=== PATIENT | female | born 1940 | race Caucasian/White ===

== ENCOUNTER 2019-09-11 12:10 | Outpatient (CLI) | payer MEDICARE, OTHER ==
[2019-09-11 17:38] LABS: ALBUMIN 2.8 g/dL (3.2-5.5); ALKALINE PHOSPHATASE 19 IU/L (42-121); ALT ALANINE AMINOTRANSFERASE < 10 IU/L (10-60); AST ASPARTATE AMINOTRANSFERASE 19 IU/L (10-42); BILIRUBIN,TOTAL 0.6 mg/dL (0.2-1.0); BUN - BLOOD UREA NITROGEN 19 mg/dL (6-20); CARBON DIOXIDE - CO2 26 mmol/L (21-32); CHLORIDE 100 mmol/L (101-111); CHOL/HDL RATIO 6.7 (<4.4); CHOLESTEROL 202 mg/dL; CREATININE 1.7 mg/dL (0.4-1.0); GFR - MDRD 29 (>89); GLUCOSE 83 mg/dL (70-100); HDL CHOLESTEROL 30 mg/dL; LDL CHOLESTEROL,CALCULATED 146 mg/dL; LDL/HDL RATIO 4.9 (<4.4); SODIUM 134 mmol/L (135-145); TOTAL PROTEIN 5.5 g/dL (6.7-8.2); VLDL CHOLESTEROL 26 mg/dL
== END 2019-09-11 23:59 | disposition home or self-care (01) ==
LOC: LAB.R 12:10
PROVIDERS: ATTEND Internal Medicine
DX: K63.2 Fistula of intestine (principal); E46 Unspecified protein-calorie malnutrition
CPT/HCPCS: 80053; 80061; 83721; 84443; 85025

== ENCOUNTER 2019-11-02 12:15 | Outpatient (CLI) | payer MEDICARE, OTHER ==
[2019-11-02 17:42] LABS: ALBUMIN 3.3 g/dL (3.2-5.5); ALKALINE PHOSPHATASE 26 IU/L (42-121); ALT ALANINE AMINOTRANSFERASE < 10 IU/L (10-60); AST ASPARTATE AMINOTRANSFERASE 24 IU/L (10-42); BILIRUBIN,DIRECT 0.2 mg/dL (0.1-0.5); BILIRUBIN,TOTAL 0.5 mg/dL (0.2-1.0); TOTAL PROTEIN 6.5 g/dL (6.7-8.2)
== END 2019-11-02 23:59 | disposition home or self-care (01) ==
LOC: LAB.R 12:15
PROVIDERS: ATTEND Registered Nurse
DX: E46 Unspecified protein-calorie malnutrition (principal)
CPT/HCPCS: 80076

== ENCOUNTER 2019-11-16 10:04 | Outpatient (CLI) | payer MEDICARE, OTHER | END 2019-11-16 10:05 | disposition home or self-care (01) | LOC: LAB.S 10:04 | PROVIDERS: ATTEND Registered Nurse | DX: Z79.01 Long term (current) use of anticoagulants (principal); Z86.711 Personal history of pulmonary embolism | CPT/HCPCS: 85610 ==

== ENCOUNTER 2019-11-22 13:44 | Outpatient (CLI) | payer MEDICARE, OTHER | END 2019-11-22 13:45 | disposition home or self-care (01) | LOC: LAB.S 13:44 | PROVIDERS: ATTEND Registered Nurse | DX: Z86.711 Personal history of pulmonary embolism (principal); Z79.01 Long term (current) use of anticoagulants | CPT/HCPCS: 85610 ==

== ENCOUNTER 2019-11-29 12:10 | Outpatient (CLI) | payer MEDICARE, OTHER | END 2019-11-29 12:11 | disposition home or self-care (01) | LOC: LAB.S 12:10 | PROVIDERS: ATTEND Registered Nurse | DX: Z79.01 Long term (current) use of anticoagulants (principal); Z86.711 Personal history of pulmonary embolism | CPT/HCPCS: 85610 ==

== ENCOUNTER 2019-12-06 13:57 | Outpatient (CLI) | payer MEDICARE, OTHER | END 2019-12-06 13:58 | disposition home or self-care (01) | LOC: LAB.S 13:57 | PROVIDERS: ATTEND Registered Nurse | DX: Z86.711 Personal history of pulmonary embolism (principal); Z79.01 Long term (current) use of anticoagulants | CPT/HCPCS: 85610 ==

== ENCOUNTER 2020-01-15 11:20 | Outpatient (CLI) | payer MEDICARE, OTHER | END 2020-01-15 11:21 | disposition critical access hospital (66) | LOC: EMS 11:20 | PROVIDERS: ATTEND Surgery | DX: R50.9 Fever, unspecified (principal); R41.82 Altered mental status, unspecified | CPT/HCPCS: A0425; A0429 ==

== ENCOUNTER 2020-01-15 11:48 | Inpatient (IN) | payer MEDICARE, OTHER ==
--- NOTE | 2020-01-15 12:12 | ED Physician Documentation ---
History of Present Illness - Stated complaint Stated Complaint: ALOC - History obtained from History obtained from: EMS, Caregiver (MICHAEL Hernández @ [facility]; 79-year-old female patient comes in today after [facility] RN requested EMS transport for a failure to thrive patient. The patient has had a roughly 16 pound weight loss over the last month, has been refusing her medications more more. She has taken her medications twice in the last 5 days. The patient is also having difficulty eating been having some swallowing difficulties. The patient's primary care provider is following her closely on this, and the nurse Betty tells me that her medications are crushed in applesauce and pudding, and the patient is refusing these. The pt's baseline speach is low volume / tone, but clear. today is has incomprehensable speach but she is resonding to painful stimuli.) Review of Systems Unable to obtain: Unresponsive, AMS Constitutional: reports: Fever (per usp and EMS.) PD PAST MEDICAL HISTORY - Past Surgical History Cardiovascular: CABG - Present Medications Home Medications: Ambulatory Orders Medication Instructions Recorded Confirmed Cholecalciferol [Vitamin D3] 5,000 unit PO DAILY 01/15/20 01/15/20 Cyanocobalamin [Vitamin B-12] 1,000 mcg IM ONCE 01/15/20 01/15/20 Escitalopram Oxalate 20 mg PO DAILY 01/15/20 01/15/20 Fluticasone [Flonase] 2 sprays MAURICE BID 01/15/20 01/15/20 Glutamine [Endari] 10 ml PO BID 01/15/20 01/15/20 Lansoprazole [Prevacid] 15 mg PO DAILY 01/15/20 01/15/20 Metoclopramide [Reglan] 10 mg PO ACHS 01/15/20 01/15/20 Ondansetron Odt [Zofran Odt] 4 mg TL Q4H PRN 01/15/20 01/15/20 Saccharomyces Boulardii [Florastor] 250 mg PO BID 01/15/20 01/15/20 Vitamin B Complex 1 each PO DAILY 01/15/20 01/15/20 Warfarin Sodium [Coumadin] 3 mg PO DAILY 01/15/20 01/15/20 - Allergies Allergies/Adverse Reactions: Allergies Allergy/AdvReac Type Severity Reaction Status Date / Time alendronate sodium Allergy Unknown Verified 01/15/20 12:14 [From Fosamax] codeine Allergy Unknown Verified 01/15/20 12:14 fentanyl Allergy Unknown Verified 01/15/20 12:14 ibandronate sodium Allergy Unknown Verified 01/15/20 12:14 risedronate sodium Allergy Unknown Verified 01/15/20 12:14 [From Actonel] Sulfa (Sulfonamide Allergy Unknown Verified 01/15/20 12:14 Antibiotics) RISENDRINATE Allergy Unknown Uncoded 01/15/20 12:14 SULFA Allergy Unknown Uncoded 01/15/20 12:14 - POLST Patient has POLST: Yes POLST Status: Limited Interventions (no Chest Compressions: Ok for intubation, IV fluids, feeding tube (per son Al Guzman ).) PD ED PE NORMAL - General General: Other - HEENT HEENT: Atraumatic, PERRL (3 mm). No: Moist mucous membranes (dry) - Neck Neck: No adenopathy - Cardiac Cardiac: RRR, No murmur - Respiratory Respiratory: No respiratory distress - Abdomen Abdomen: Soft, Non distended - Female Female : Deferred - Rectal Rectal: Deferred - Derm Derm: Warm and dry - Extremities Extremities: No deformity, No edema - Neuro Eye Opening: To Pain Motor: Localizes to Pain Verbal: Incomprehensible GCS Score: 9 PD ED PE EXPANDED - Neuro Neuro: Lethargic, Weakness - GCS Eye Opening: To Pain Motor: Localizes to Pain Verbal: Incomprehensible Total: 9 Results - Vitals Vitals: Vital Signs - 24 hr 01/15/20 01/15/20 01/15/20 12:15 12:31 13:34 Temperature 37.4 C 36.9 C Heart Rate 86 85 83 Respiratory 21 21 14 Rate Blood Pressure 155/91 H 157/79 H O2 Saturation 96 96 99 01/15/20 14:18 Temperature Heart Rate 84 Respiratory 18 Rate Blood Pressure 217/93 H O2 Saturation 100 Oxygen O2 Source Room air - Labs Labs: Laboratory Tests 01/15/20 01/15/20 01/15/20 12:55 12:55 12:55 WBC 9.5 RBC 3.81 L Hgb 11.1 L Hct 35.7 L MCV 93.7 MCH 29.1 MCHC 31.1 L RDW 16.3 H Plt Count 323 MPV 10.2 Neut # (Auto) 6.5 Lymph # (Auto) 2.0 [place] # (Auto) 0.9 Eos # (Auto) 0.0 Baso # (Auto) 0.1 Absolute Nucleated RBC 0.00 Nucleated RBC % 0.0 Sodium 149 H Potassium 3.6 Chloride 110 Carbon Dioxide 25 Anion Gap 14.0 H BUN 98 H* Creatinine 5.1 H Estimated GFR (MDRD) 8 L Glucose 109 H Lactic Acid Calcium 11.3 H Total Bilirubin 1.2 H AST 42 ALT 21 Alkaline Phosphatase 27 L Troponin I High Sens B-Natriuretic Peptide 88 Total Protein 6.6 L Albumin 3.3 Globulin 3.3 Albumin/Globulin Ratio 1.0 Lipase 56 H Urine Color Urine Clarity Urine pH Ur Specific Seward Urine Protein Urine Glucose (UA) Urine Ketones Urine Occult Blood Urine Nitrite Urine Bilirubin Urine Urobilinogen Ur Leukocyte Esterase Urine RBC Urine WBC Ur Epithelial Cells Ur Squamous Epith Cells Urine Crystals Urine Bacteria Ur Microscopic Review Urine Culture Comments 01/15/20 01/15/20 01/15/20 12:55 12:55 13:32 WBC RBC Hgb Hct MCV MCH MCHC RDW Plt Count MPV Neut # (Auto) Lymph # (Auto) [place] # (Auto) Eos # (Auto) Baso # (Auto) Absolute Nucleated RBC Nucleated RBC % Sodium Potassium Chloride Carbon Dioxide Anion Gap BUN Creatinine Estimated GFR (MDRD) Glucose Lactic Acid 1.4 Calcium Total Bilirubin AST ALT Alkaline Phosphatase Troponin I High Sens 65.1 H* B-Natriuretic Peptide Total Protein Albumin Globulin Albumin/Globulin Ratio Lipase Urine Color DARK YELLOW Urine Clarity CLOUDY Urine pH 8.0 H Ur Specific [place] 1.020 Urine Protein 100 H Urine Glucose (UA) NEGATIVE Urine Ketones TRACE Urine Occult Blood SMALL H Urine Nitrite NEGATIVE Urine Bilirubin NEGATIVE Urine Urobilinogen 0.2 (NORMAL) Ur Leukocyte Esterase LARGE H Urine RBC 11-25 H Urine WBC >25 H Ur Epithelial Cells FEW Renal Tubular Ur Squamous Epith Cells RARE Squamous Urine Crystals 3-5 Triple Phosphate Urine Bacteria Moderate H Ur Microscopic Review INDICATED Urine Culture Comments INDICATED - Rads (name of study) No standard instances Radiology: Final report received, See rad report PD MEDICAL DECISION MAKING - ED course Complexity details: reviewed results, re-evaluated patient, considered differential (UTI, pneumonia, COVID-19, CVA), d/w family (son Al regarding the pt's failure to thrive, dementia, and recent weight loss of 16# over the past month. ), d/w knowledge management consultant (Dr. Angie Waddell who has agreed to accept the pt as an admit for hydration, antibiotics. She will speak with the pt's son, Al, about the pt's code / POLST status and get him to sign a new form when he arives from [place] tomorrw. ) Departure - Departure Disposition: 66 [facility] DC/Xfer Clinical Impression: Altered mental status Qualifiers: Altered mental status type: coma Coma depth: Sparkman coma 9-12 Coma timing: at arrival to emergency department Qualified Code(s): R40.2422 - Sparkman coma scale score 9-12, at arrival to emergency department UTI (urinary tract infection) Qualifiers: Urinary tract infection type: site unspecified Hematuria presence: without hematuria Qualified Code(s): N39.0 - Urinary tract infection, site not specified Condition: Fair
[2020-01-15 13:00] LABS: BASOPHILS # (AUTO) 0.1 10^3/uL (0.0-0.1); BASOPHILS % (AUTO) 0.9 %; EOSINOPHILS % (AUTO) 0.2 %; HGB - HEMOGLOBIN 11.1 g/dL (12.0-16.0); LYMPHOCYTES % (AUTO) 20.8 %; MEAN CORPUSCULAR HEMOGLOBIN 29.1 pg (27.0-31.0); MEAN CORPUSCULAR HGB CONC 31.1 g/dL (32.0-36.0); MEAN CORPUSCULAR VOLUME 93.7 fL (81.0-99.0); MEAN PLATELET VOLUME 10.2 fL (7.9-10.8); MONOCYTES # (AUTO) 0.9 10^3/uL (0.0-1.0); MONOCYTES % (AUTO) 9.5 %; NEUTROPHILS # (AUTO) 6.5 10^3/uL (1.5-6.6); NEUTROPHILS % (AUTO) 68.3 %; PLT - PLATELET COUNT 323 10^3/uL (130-450); RED BLOOD COUNT 3.81 10^6/uL (4.20-5.40); RED CELL DISTRIBUTION WIDTH 16.3 % (12.0-15.0); WHITE BLOOD COUNT 9.5 x10^3/uL (4.8-10.8)
[2020-01-15 13:20] LABS: ALBUMIN 3.3 g/dL (3.2-5.5); BILIRUBIN,TOTAL 1.2 mg/dL (0.2-1.0); CALCIUM 11.3 mg/dL (8.5-10.3); CREATININE 5.1 mg/dL (0.4-1.0); TOTAL PROTEIN 6.6 g/dL (6.7-8.2)
[2020-01-15] MEDS ORDERED: SODIUM CHLORIDE 0.9% 1,000 ML IV ONE (13:30)
--- NOTE | 2020-01-15 13:32 | XRAY Report ---
Reason: chest pain Procedure Date: 01/15/2020 Accession Number: [id number] / [id number] Procedure: XR - Chest 1 View X-Ray CPT Code: 15361 Final Report FULL RESULT: EXAM: CHEST RADIOGRAPHY EXAM DATE: 01/15/2020 12:40 PM. CLINICAL HISTORY: Chest pain. COMPARISON: None. TECHNIQUE: 1 view. FINDINGS: Lungs/Pleura: Enlarged pulmonary arteries consistent with pulmonary artery hypertension. Increased interstitial markings and honeycombing lung bases compatible with pulmonary fibrosis or UIP. Negative for consolidation. Negative for pleural fluid. Decreased lung volume. Mediastinum: Sternotomy wires consistent with prior cardiac surgery. Heart size is normal. Trachea is midline. Other: None. IMPRESSION: 1. Negative for active cardiopulmonary process. 2. Chronic stitch lung disease lung bases in the lung base honeycombing consistent with pulmonary fibrosis or UIP. 3. Enlarged pulmonary arteries consistent with pulmonary artery hypertension. RADIA
[2020-01-15 13:41] LABS: GLUCOSE, URINE (UA) NEGATIVE (NEGATIVE); KETONES,URINE (UA) TRACE mg/dL (NEGATIVE); LEUKOCYTE ESTERASE, URINE LARGE (NEGATIVE); NITRITE,URINE NEGATIVE (NEGATIVE); OCCULT BLOOD,URINE SMALL (NEGATIVE); PROTEIN,URINE 100 mg/dL (NEGATIVE); UROBILINOGEN,URINE 0.2 (NORMAL) E.U./dL (NORMAL)
[2020-01-15 13:42] LABS: CLARITY,URINE CLOUDY (CLEAR)
[2020-01-15 13:44] LABS: BILIRUBIN,URINE NEGATIVE (NEGATIVE); ICTOTEST,URINE NEGATIVE
--- NOTE | 2020-01-15 13:47 | CT Report ---
Reason: altered LOC Procedure Date: 01/15/2020 Accession Number: [id number] / [id number] Procedure: CT - HEAD WO CPT Code: Final Report FULL RESULT: EXAM: CT HEAD EXAM DATE: 01/15/2020 01:07 PM. CLINICAL HISTORY: Altered LOC. COMPARISON: CHEST 1 VIEW 01/15/2020 12:40 PM. TECHNIQUE: Multiaxial CT images were obtained from the foramen magnum to the vertex. Reformats: Sagittal and coronal. IV contrast: None. In accordance with CT protocol optimization, one or more of the following dose reduction techniques were utilized for this exam: automated exposure control, adjustment of mA and/or KV based on patient size, or use of iterative reconstructive technique. FINDINGS: Parenchyma: No intraparenchymal hemorrhage. No evidence of mass, midline shift, or CT findings of acute infarction. Monson-white differentiation is distinct. Diffuse chronic microangiopathic white matter changes are evident. Old right basal ganglia lacunar infarct. Right parietal encephalomalacia likely from old infarct. Extraaxial Spaces: Normal for age. No subdural or epidural collections identified. Ventricles: The ventricles and cortical sulci are enlarged, consistent with age-related tissue loss. Sinuses and orbits: Imaged paranasal sinuses, orbits, and mastoids show no significant abnormality. Bones: No evidence of fracture or calvarial defect. Other: Atherosclerotic arterial calcifications. IMPRESSION: 1. Generalized age-related cortical atrophic changes. 2. Old right basal ganglia lacunar infarct. 3. Right parietal encephalomalacia is likely from old infarct. 4. No intracranial hemorrhage or large recent infarct evident. If there is clinical indication to further assess, consider MRI. RADIA
[2020-01-15 13:49] LABS: BACTERIA,URINE Moderate /HPF (None Seen); CRYSTALS,URINE 3-5 Triple Phosphate /LPF; EPITHELIAL CELLS,UR FEW Renal Tubular /HPF (<= Few); SQUAMOUS EPITHELIAL CELL,UR RARE Squamous (<= Few)
[2020-01-15] MEDS ORDERED: cefTRIAXone 1 GM VIAL IVP STA (13:57)
[2020-01-15] MEDS ORDERED: hydrALAZINE INJ 20 MG/ML VIAL IVP STA (14:14)
[2020-01-15] MEDS ORDERED: ONDANSETRON 4 MG/2 ML VIAL IVP PRN (14:22)
[2020-01-15] MEDS ORDERED: DEXTROSE 5%-0.9% NACL 1,000 ML IV SCH (15:00)
[2020-01-15] MEDS ORDERED: hydrALAZINE INJ 20 MG/ML VIAL IVP PRN (15:11)
[2020-01-15 16:25] LABS: INR 5.4 (0.8-1.2)
--- NOTE | 2020-01-15 16:46 | HISTORY & PHYSICAL EXAMINATION ---
DATE OF SERVICE: 01/15/2020 Physician: Angie Waddell MD HISTORY OF PRESENT ILLNESS: This is an 79-year-old female with a history of dementia and old CABG. The patient resides at [facility]. She has been having failure to thrive with a documented 15-pound weight loss over the last 1 month, has been refusing foods and medication intermittently. Today, the staff noted that she had altered responsiveness and also a fever at the assisted living facility and she was brought to the emergency room. In the ER, she was obtunded, responded only to painful stimuli, did have some verbalizing that was noncoherent. Her workup in the ER shows that she has urinary tract infection, hypernatremia with a sodium of 149, acute kidney injury with BUN of 98 and creatinine 5.1, as her baseline creatinine was 1.7 in the past. She also has an elevated troponin of 65, a normal lactic acid level, normal temperature and normal white blood count. She presented with a normal blood pressure in the 140s, but subsequently in the ER has a documented blood pressure of 217 systolic. PAST MEDICAL HISTORY 1. CABG. 2. Dementia. ALLERGIES 1. FOSAMAX 2. CODEINE. 3. FENTANYL. 4. IBANDRONATE. 5. ACTONEL. 6. SULFA ANTIBIOTICS. 7. RISEDRONATE. MEDICATIONS 1. Zofran p.r.n. 2. Vitamin D3 5000 units daily. 3. Reglan before meals and at bedtime. 4. Vitamin B complex daily. 5. Glutamine 10 mL b.i.d. 6. Prevacid 15 mg daily. 7. Florastor 250 mg b.i.d. 8. Flonase nasal spray b.i.d. 9. Escitalopram 20 mg daily. 10. Vitamin B12 1000 mcg daily. 11. Warfarin 3 mg daily (unclear if this is current and what Dx it is for). SOCIAL HISTORY: She does not drink alcohol or smoke. She does require a dysphagia altered diet according to the notes. The Emergency Room was able to ascertain that there is a female relative who is the first person to contact, but there was no phone listed. A second person to contact was a son and the ER Provider spoke to the son, who will be arriving tomorrow from [place]. He reported that he wanted no CPR or defibrillation for his mother, but intubation and ventilator use was okay. REVIEW OF SYSTEMS: A comprehensive review of systems was done from chart review since the patient is obtunded. The pertinent positives are listed, the rest are negative. FAMILY HISTORY: No listed inherited diseases. PHYSICAL EXAMINATION GENERAL: Obtunded white female. She does not appear in distress. VITAL SIGNS: Blood pressure 148/103 (after iv Hydralazine treatment for the systolic BP of 213), heart rate 73 and regular, respiratory rate 16, O2 saturation 100% on room air, afebrile at 36.6 centigrade. HEENT: Reveals dry oral mucosa, temporal wasting and sunken eyes. NECK: No JVD. CHEST: Clear. HEART: Distant heart sounds. ABDOMEN: Soft, nontender. Normal bowel sounds. EXTREMITIES: No clubbing, cyanosis or edema. Abnormal skin tenting is present. NEUROLOGIC: Obtunded, responds with appropriate localization to pain stimulus. Is moving spontaneously. LABORATORY DATA: Sodium 149, potassium 3.6, anion gap 14, BUN 98, creatinine 5.1. Lactic acid normal at 1.4. AST and ALT are normal. BNP normal at 88. Troponin high sensitivity is 65. Lipase 56. White blood count 9.5, hemoglobin 11, platelet count 323. No INR was done. Urinalysis shows a pH of 8, high protein, small blood, large leukocyte esterase, moderate bacteria and many white blood cells. IMAGING: Chest x-ray: No active cardiopulmonary disease. Head CT: Evidence of old strokes and encephalomalacia, consistent with her age, but no acute findings. EKG: Normal sinus rhythm, LVH voltage with diffuse, flattened or minimally inverted T waves, QS waves are present in V1 and V2. There is no old EKG available for comparison. IMPRESSION/DIAGNOSES 1. Altered mental status, which is likely related to her infection and dehydration on top of dementia. 2. Urinary tract infection. 3. Hypertensive urgency. 4. Lccni-ya-oghhoeq kidney disease. 5. Hypernatremia. 6. Dementia. 7. Old stroke. 8. Elevated troponin (and abnormal EKG). 9. History of coronary artery bypass graft. 10. Noncompliance with medical management. Her refusal of meds and diet may be due to dementia or due to worsening of a metabolic encephalopathy over time. PLAN: Admit the patient to a medical/surgical Inpatient bed. Begin IV hydration, D5 normal saline or 0.45 NS. Follow her electrolytes daily. Follow her BUN and creatinine daily. Begin empiric IV antibiotics for her UTI using Ceftriaxone. Obtain blood and urine cultures and await results. Diet will currently be n.p.o. because of her altered mental status, but as she awakens will evaluate with a swallowing evaluation before diet is resumed. Use IV hydralazine p.r.n. hypertensive urgency. Cycle troponins x3. Obtain an INR now and determine the diagnosis for Warfarin being on her medication list. (She may have had paroxysmal atrial fibrillation or prior atrial fibrillation, but now is in sinus rhythm. If she cannot swallow, then bridging subcutaneous therapy may be needed for anticoagulation currently). The plan will be to discuss code status and medical management in detail with the son, when he arrives with an advance care plan. COVID nasal swab was done in [facility] ER because of presence of infection with unconfirmed source. Therefore, respiratory isolation will be ordered until we know her COVID status. DEEP VENOUS THROMBOSIS PROPHYLAXIS: SCDs. CODE STATUS: DNR with no CPR or defibrillation, but okay to intubate. ATTESTATION: The patient is expected to be discharged or transferred to another facility within 96 hours: Yes. Addendum: The INR is excessive at 5, but since there is no active bleeding, will hold Warfarin but not give any vitamin K. Follow INR daily, since it may go up, being on antibiotics. TD: 01/15/2020 15:27 [email or web address]
--- NOTE | 2020-01-15 17:14 | PHARMACY PROGRESS NOTE ---
- Best Possible Medication History Admit Date and Time: 01/15/20 1422 Processed by: Pharmacy Medication History completed: Yes Secondary Source(s): Physician records, Facility MAR as ONLY source As the person ultimately responsible for medication therapy, providers are able to order a medication from an existing home medication list in [facility] via the "Reconcile Routine" prior to Confirmation of that medication by client support manager. Such practice is discouraged except when the physician, in their clinical judgment, deems that a medical need exists for a medication without regard to previous use.
[2020-01-15] MEDS ORDERED: ACETAMINOPHEN 1,000 MG/100 ML 100 ML IV PRN (18:50)
--- NOTE | 2020-01-15 22:50 | ANESTHESIA PROCEDURE NOTE ---
Height and Weight: Height 5 ft 2 in Weight (kg) 45.5 kg Body Mass Index 18.3 Vital Signs: Temp Pulse Resp BP Pulse Ox 36.4 C L 87 16 145/89 H 92 01/15/20 21:00 01/15/20 21:00 01/15/20 21:00 01/15/20 21:00 01/15/20 21:00 Allergies alendronate sodium [From Fosamax] Allergy (Verified 01/15/20 12:14) Unknown codeine Allergy (Verified 01/15/20 12:14) Unknown fentanyl Allergy (Verified 01/15/20 12:14) Unknown ibandronate sodium Allergy (Verified 01/15/20 12:14) Unknown risedronate sodium [From Actonel] Allergy (Verified 01/15/20 12:14) Unknown Sulfa (Sulfonamide Antibiotics) Allergy (Verified 01/15/20 12:14) Unknown RISENDRINATE Allergy (Uncoded 01/15/20 12:14) Unknown SULFA Allergy (Uncoded 01/15/20 12:14) Unknown Anesth Central Line Template - Central Line Central Line Preparation: Consent Obtained (obtained phone consent from patient's son Al), Time out completed, Ultrasound used, Sterile prep and drape Central line type: Other (PICC) Central line aftercare: Other (see note) Other Info/Details: Called for IV access. Attempted peripheral IVs x 2 without success. Patient has very poor veins, the veins are small and easily collapsed. Consent for PICC line obtained from patient's son. I was able to access the right basillic vein with a 20G needle and advance the guidewire with ease. I placed a 4.5FR sheath and after removal of wire/introducer there was no blood return. I was unable to advance the PICC into the sheath and suspect the vein had collapsed. I attempted the cephalic vein but immediately after access with the needle, the vein collapsed. I then used the ultrasound to image the veins in the left arm. The veins were small and poor quality. I attempted to place a peripheral IV but was unsuccessful. I imaged the IJ veins and the IJs were flat and collapsed easily with ultrasound pressure despite steep trendelenberg position. The veins were directly over the carotid artery and with INR of 5.4, the risk of complications for IJ central line placement was too great. At this point, I recommend IO placement by ED staff and a general surgery consult for IV access.
[2020-01-15] MEDS: SODIUM CHLORIDE FLUSH 0.9% 10 ML SYRINGE IVP SCH (23:07)
[2020-01-15] MEDS: DEXTROSE 5%-0.45% NACL 1,000 ML IV SCH (23:27)
[2020-01-16] MEDS: SODIUM CHLORIDE FLUSH 0.9% 10 ML SYRINGE IVP SCH ×3 (00:26→16:06)
[2020-01-16] MEDS: FAMOTIDINE 20 MG/2 ML SYRINGE IVP SCH ×2 (00:26→20:16)
[2020-01-16] MEDS ORDERED: SODIUM CHLORIDE 0.9% 1,000 ML IV ONE (00:37)
[2020-01-16] MEDS ORDERED: SODIUM CHLORIDE 0.9% 500 ML IV ONE (00:37)
[2020-01-16 01:09] LABS: CALCIUM 10.5 mg/dL (8.5-10.3); CREATININE 4.7 mg/dL (0.4-1.0)
[2020-01-16] MEDS ORDERED: LACTATED RINGERS 1,000 ML IV ONE (01:30)
[2020-01-16 08:52] LABS: BASOPHILS # (AUTO) 0.1 10^3/uL (0.0-0.1); BASOPHILS % (AUTO) 0.7 %; EOSINOPHILS # (AUTO) 0.8 10^3/uL (0.0-0.7); EOSINOPHILS % (AUTO) 8.5 %; LYMPHOCYTES # (AUTO) 1.7 10^3/uL (1.5-3.5); LYMPHOCYTES % (AUTO) 19.4 %; MEAN CORPUSCULAR HEMOGLOBIN 29.3 pg (27.0-31.0); MEAN CORPUSCULAR VOLUME 94.7 fL (81.0-99.0); MEAN PLATELET VOLUME 10.5 fL (7.9-10.8); MONOCYTES # (AUTO) 0.8 10^3/uL (0.0-1.0); MONOCYTES % (AUTO) 9.6 %; NEUTROPHILS # (AUTO) 5.4 10^3/uL (1.5-6.6); NEUTROPHILS % (AUTO) 61.2 %; PLT - PLATELET COUNT 255 10^3/uL (130-450); RED BLOOD COUNT 3.41 10^6/uL (4.20-5.40); RED CELL DISTRIBUTION WIDTH 16.5 % (12.0-15.0); WHITE BLOOD COUNT 8.8 x10^3/uL (4.8-10.8)
[2020-01-16 09:07] LABS: CALCIUM 10.4 mg/dL (8.5-10.3); CREATININE 4.3 mg/dL (0.4-1.0)
--- NOTE | 2020-01-16 11:37 | PROCEDURE REPORT ---
Hospitalist Procedure Note - Procedure Note Procedure Note: USG PICC attempted but could not advance the catheter beyond proximal axillary vein. the tip of the picc is in the left proximal axillary vein. 5 jordanian double lumen catheter inserted using all sterile prep and techniques. time out done and RN in the room, check list followed. Total catheter length is 20 cm and zero cm at the skin. Catheter secured and taped to the left brachium
--- NOTE | 2020-01-16 11:39 | ANESTHESIA PROCEDURE NOTE ---
Diagnosis: poor/no iv access Procedure: picc attempted/midline in Consent for Procedure(s) Verified and Reviewed: Yes Height and Weight: Height 5 ft 2 in Weight (kg) 47.5 kg Body Mass Index 18.3 Vital Signs: Temp Pulse Resp BP Pulse Ox 36.5 C 74 12 142/72 H 97 01/16/20 10:47 01/16/20 10:47 01/16/20 10:47 01/16/20 09:22 01/16/20 10:47 Allergies alendronate sodium [From Fosamax] Allergy (Verified 01/15/20 12:14) Unknown codeine Allergy (Verified 01/15/20 12:14) Unknown fentanyl Allergy (Verified 01/15/20 12:14) Unknown ibandronate sodium Allergy (Verified 01/15/20 12:14) Unknown risedronate sodium [From Actonel] Allergy (Verified 01/15/20 12:14) Unknown Sulfa (Sulfonamide Antibiotics) Allergy (Verified 01/15/20 12:14) Unknown RISENDRINATE Allergy (Uncoded 01/15/20 12:14) Unknown SULFA Allergy (Uncoded 01/15/20 12:14) Unknown ASA classification: 3-Severe systemic disease Is this case an emergency?: No Anesth Central Line Template - Central Line Central Line Preparation: Consent Obtained, Time out completed, Ultrasound used, Sterile prep and drape Central line type: Double lumen Central line catheter tip site resides: left proximal axillary vein Central line aftercare: Chlorhexidine disc placed, Secured, Placement confirmed, No pneumothorax, No complications, Bundle checklist complete, Pt tolerated well, Other (5 romansh double lumen)
[2020-01-16] MEDS: cefTRIAXone 1 GM in SODIUM CHLORIDE 0.9% MINIBAG 100 ML IV SCH (11:55)
--- NOTE | 2020-01-16 12:37 | XRAY Report ---
Reason: PICC attempted, line placed as midline Procedure Date: 01/16/2020 Accession Number: [id number] / [id number] Procedure: XR - Chest for Line Placement CPT Code: Final Report FULL RESULT: EXAM: CHEST RADIOGRAPHY EXAM DATE: 01/16/2020 11:45 AM. CLINICAL HISTORY: PICC attempted, line placed as midline. COMPARISON: CHEST 1 VIEW 01/15/2020 12:40 PM. TECHNIQUE: Upright AP view. FINDINGS: Lungs/Pleura: Extensive bibasilar peribronchial cuffing, as before. No new opacities. No generalized interstitial abnormality. No pneumothorax or gross pleural fluid. Mediastinum: Within exam limitations, the cardiomediastinal contour is normal. Sternotomy wires, as before. Mild aortic arch calcification. Other: Left upper extremity catheter extending to the mid left subclavian vein. IMPRESSION: 1. Left upper extremity catheter extending to the mid left subclavian vein. 2. Extensive bibasilar peribronchial cuffing suggesting chronic bronchitis. RADIA
[2020-01-16] MEDS: DEXTROSE 5%-0.45% NACL 1,000 ML IV SCH ×3 (15:03→22:28)
--- NOTE | 2020-01-16 17:35 | ADVANCE CARE PLANNING NOTE ---
Advance Care Planning - Planning Encounter Date: 01/16/20 Time: 15:35 Purpose: To confirm CODE status. To determine medical care plan and goals, from her son. Parties in Attendance: I spoke to her son, Al, outside the patient's room. Decisional Capacity of the Patient: Patient is obtunded, only responds to painful stimuli, is not communicative and has no decisional capacity currently. - Encounter Subjective/Patient's Story: Her history is obtained from the son and also from my speaking to a nurse at [facility] earlier today. This is an 79-year-old white female who has a history of perforated appendix, enterocutaneous fistula history, CKD, C. difficile history, a feeding tube was required but has been removed 4 to 5 months ago at request of the son, history of diabetes only on diet management, CKD grade 3, and A. fib, on anticoagulation. The son says that she has "a reaction to Warfarin but can take Coumadin". She is also on other management for constipation and other prn medications. The patient was able to ambulate with special caregivers that the son hired about a month ago. She carried on conversations, could remember about taxes in December, discussed her pet cat with the son. About 4 weeks ago he received a call that she had lost 5 pounds, he wanted to know "what they were doing about it". He states there was no response from them with an answer for 3 days. The next time they called him, he was told that she now had a 15 pound weight loss and was getting weaker and could not get out of bed. Yesterday, he was informed by our ER that she was brought in for obtundation, fever, and had signs of UTI. The ER provider here had a detailed discussion with him regarding the patient's CODE STATUS: The son wants no CPR or defibrillation but agrees to a ventilator if needed. The son describes that her dementia must be mild because she forgets dates but otherwise is very functional. Objective/Medical Story: The patient was brought to the ER and the only history that was provided to us was that she has dementia, has had failure to thrive with a 15 pound weight loss over the past month while living at [facility] for the past 6 to 8 months. She was obtunded and febrile at [facility], and in our ER showed signs of severe dehydration, ADWOA on CKD and evidence of a UTI. IV access was difficult and she did not not get a secure peripheral iv line until this morning, requiring PICC line insertion. CT of the head did not show an acute stroke or acute event. She was started on IV fluids, IV antibiotics, no oral diet since she is obtunded. She is unchanged today; moves spontaneously, does not communicate, is obtunded but responds to pain, is warm and dry and somnolent most of the day. Goals of Care: The son says that he has never seen her this comatose. His goal is to have her return back to her level of functioning of about a month ago. No return to [facility], but rather return to live at home in her own residence, even if hiring caregivers by the son is required. He asked if we could guide him in getting that arranged. If she awakens, improves and needs rehab and is able to participate, he does want her to go to a SNF for rehab and then eventually return to her own residence with caregivers. Plan: Continue with aggressive medical management including IV hydration, IV antibiotics, blood cultures, blood tests, IV access, imaging tests as needed. Determine her progress daily and update him. Discharge to a SNF if she is able to cooperate when she awakens. After SNF, plan is to go home to her own residence in [place] with caregivers that the son will arrange. No CPR or defibrillation. Additional Discussion: Okay for intubation and use of ventilator. Code Status: Do Not Attempt Resuscitation Time spent on advance care plannin min
--- NOTE | 2020-01-16 17:54 | PROVIDER PROGRESS NOTE ---
Assessment/Plan - Problem List (1) Altered mental status Qualifiers: Altered mental status type: coma Coma depth: [place] coma 9-12 Coma timing: at arrival to emergency department Qualified Code(s): R40.2422 - [place] coma scale score 9-12, at arrival to emergency department Assessment/Plan: She is has no change in mental status since yesterday. There was no acute stroke or event seen on brain CT imaging. Possibly slow response to hydration and infection in an elderly pt. At this point the son wants everything done, short of defibrillation and CPR. We will update him daily on her progress, if any. He did not want her to be a palliative care or hospice case yet. (2) UTI (urinary tract infection) Qualifiers: Urinary tract infection type: site unspecified Hematuria presence: without hematuria Qualified Code(s): N39.0 - Urinary tract infection, site not specified Assessment/Plan: No fever here but apparently she had 1 at [facility]. White blood count has been normal yesterday and today. The urine culture is turning positive for gram-negative shonna. Continue with empiric IV ceftriaxone. Await urine culture result to tailor antibiotic. Await blood culture as well. (3) Acute on chronic kidney failure Assessment/Plan: Minimal improvement in creatinine since admission yesterday, mostly because there has been little IV access that is stable, until midday today. Continue with IV fluids gently. Follow BMP daily. (4) Hypernatremia Assessment/Plan: Sodium went from 149 to 150, since she did not get free water by peripheral IV because access was not established until today. (5) Elevated INR Assessment/Plan: INR went from 5.0-6.2, possibly due to dehydration, infection, IV antibiotics or the new history that the son provided which is that "she has a warfarin reaction". No signs of bleeding. Continue to hold anticoagulation. Follow INR daily. (6) Warfarin not tolerated Assessment/Plan: This is according to the information from the son Al today. When she can swallow and when the INR has normalized, will resume with Coumadin and not generic warfarin. (7) Acute kidney injury superimposed on chronic kidney disease Assessment/Plan: BUN/creat 90/4.7>> 83/4.3 today. Continue IV hydration. Follow BMP daily. (8) Dehydration Assessment/Plan: He still has significant skin tenting, and mucosa still appears dry. Continue with IV hydration, now via a PICC line which has 2 ports. (9) Cerebrovascular accident, old Assessment/Plan: This was seen on head CT done at admission. Currently all of her medications are by IV since she is obtunded and cannot swallow. (10) Dementia Assessment/Plan: Son states she has a mild memory loss problem. Her true level of dementia is unclear from records. (11) Severe protein-calorie malnutrition Assessment/Plan: The patient was seen by RD and confirms that she has had weight loss of greater than 5% in 1 month Nutritional intake of less than 50% of recommended for 2 weeks or more. Tinea with peripheral D5 and her IV for calories. If she does not awaken in the next 24 to 48 hours to start an oral diet, will begin IV nutrition. (12) Anemia Assessment/Plan: With hydration started, hemodilution is expected. Follow CBC daily. If hemoglobin goes under 7, will check with son whether a transfusion for the pt is desired by him. - Current Meds Current Meds: Current Medications Generic Name Dose Route Start Last Admin Trade Name Freq PRN Reason Stop Dose Admin Famotidine 20 mg 01/15/20 21:00 01/16/20 00:26 Pepcid IVP 20 mg QPM MARIA DEL CARMEN Administration Ceftriaxone Sodium 1 gm/ 100 mls @ 200 mls/hr 01/16/20 09:00 01/16/20 12:30 Sodium Chloride IV Infused DAILY MARIA DEL CARMEN Infusion Dextrose/Sodium Chloride 1,000 mls @ 125 mls/hr 01/15/20 23:00 01/16/20 15:04 D5.45ns IV Not Given .Q8H MARIA DEL CARMEN Sodium Chloride 10 ml 01/15/20 17:00 01/16/20 16:06 Normal Saline Flush 0.9% IVP 10 ml 0100,0900,1700 MARIA DEL CARMEN Administration - Lab Result Fish Bone Diagrams: 01/16/20 08:35 01/16/20 08:35 - Additional Planning My Orders: My Active Orders 01/15/20 17:00 Sodium Chloride Flush 0.9% [Normal Saline Flush 0.9%] 10 ml IVP 0100,0900,1700 01/15/20 18:50 Acetaminophen 1,000 mg/100 ml [Ofirmev] 100 ml IV Q6HR 01/15/20 21:00 Famotidine [Pepcid] 20 mg IVP QPM 01/15/20 23:00 Dextrose 5%-0.45% NaCl [D5.45ns] 1,000 ml IV 125 mls/hr 01/16/20 Clinical Swallow Evaluation [ST] Routine 01/16/20 07:59 Miscellaneous Laboratory Order [LAB] Urgent 01/16/20 08:01 PICC Line Insert [RC] .ONCE 01/16/20 09:00 cefTRIAXone [Rocephin] 1 gm Sodium Chloride 0.9% Minibag [Normal Saline 0.9% Minibag] 100 ml IV DAILY 01/16/20 09:17 Isolation - Discontinue [RC] .once 01/16/20 11:29 Miscellaenous Nursing Order [RC] QSHIFT 01/16/20 18:00 Potassium Chloride/Water 10 mEq/100 mL q1h (Enter # of bags) Potassium Chlor 10 Meq/100 ml [Potassium Chloride] 10 meq in 100 ml IV Q1H 01/17/20 05:00 BMP - BASIC METABOLIC PANEL [CHEM] DAILYLAB CBC - COMP BLD CT W/AUTO DIFF [HEME] DAILYLAB PT WITH INR [COAG] DAILYLAB 01/18/20 05:00 BMP - BASIC METABOLIC PANEL [CHEM] DAILYLAB CBC - COMP BLD CT W/AUTO DIFF [HEME] DAILYLAB PT WITH INR [COAG] DAILYLAB Subjective - Subjective Patient Reports: Other (Not communicative, does wince and respond to sternal r ub. She is mouth breathing, oral mucosa is still dry.) Objective Vital Signs: Vital Signs - 24 hr 01/15/20 01/16/20 01/16/20 21:00 01:00 05:00 Temperature 36.4 C L 36.3 C L 36.5 C Heart Rate Heart Rate [ 87 81 78 Monitoring electrodes] Heart Rate [ Radial] Respiratory 16 18 18 Rate Blood Pressure [Right Ankle] Blood Pressure 145/89 H 151/74 H 133/57 H [Right Brachial artery] O2 Saturation 92 100 98 01/16/20 01/16/20 01/16/20 09:22 10:47 13:00 Temperature 36.5 C 36.5 C 36.4 C L Heart Rate 74 Heart Rate [ 78 52 L Monitoring electrodes] Heart Rate [ Radial] Respiratory 16 12 16 Rate Blood Pressure 142/72 H 121/63 [Right Ankle] Blood Pressure [Right Brachial artery] O2 Saturation 100 97 87 L 01/16/20 01/16/20 15:41 16:03 Temperature 36.4 C L Heart Rate Heart Rate [ Monitoring electrodes] Heart Rate [ 80 Radial] Respiratory 16 Rate Blood Pressure 132/54 H [Right Ankle] Blood Pressure [Right Brachial artery] O2 Saturation 99 Oxygen O2 Source Room air I&O (Last 24 Hrs): Intake and Output Totals x24h 01/14/20 01/15/20 01/16/20 23:59 23:59 23:59 Intake Total 116.913 1378.05 Output Total 50 75 Balance 926.916 4672.05 General: Other (Obtunded) HEENT: Other (Dry mucosa, eyes sunken, temporal wasting.) Neck: No JVD Neuro: Other (Obtunded, moves spontaneously, responds to pain) Cardiovascular: Regular rate, No murmurs Respiratory: No respiratory distress, Breath sounds nml Abdomen: Normal bowel sounds, Soft Extremities: No edema, Other (Skin tenting present diffusely) - Results Results: Laboratory Results WBC 8.8 x10^3/uL (4.8-10.8) 01/16/20 08:35 RBC 3.41 10^6/uL (4.20-5.40) L 01/16/20 08:35 Hgb 10.0 g/dL (12.0-16.0) L 01/16/20 08:35 Hct 32.3 % (37.0-47.0) L 01/16/20 08:35 MCV 94.7 fL (81.0-99.0) 01/16/20 08:35 MCH 29.3 pg (27.0-31.0) 01/16/20 08:35 MCHC 31.0 g/dL (32.0-36.0) L 01/16/20 08:35 RDW 16.5 % (12.0-15.0) H 01/16/20 08:35 Plt Count 255 10^3/uL (130-450) 01/16/20 08:35 MPV 10.5 fL (7.9-10.8) 01/16/20 08:35 Neut # (Auto) 5.4 10^3/uL (1.5-6.6) 01/16/20 08:35 Lymph # (Auto) 1.7 10^3/uL (1.5-3.5) 01/16/20 08:35 [place] # (Auto) 0.8 10^3/uL (0.0-1.0) 01/16/20 08:35 Eos # (Auto) 0.8 10^3/uL (0.0-0.7) H 01/16/20 08:35 Baso # (Auto) 0.1 10^3/uL (0.0-0.1) 01/16/20 08:35 Absolute Nucleated RBC 0.00 x10^3/uL 01/16/20 08:35 Nucleated RBC % 0.0 /100WBC 01/16/20 08:35 PT 56.0 secs (9.9-12.6) H 01/15/20 16:01 INR 5.4 (0.8-1.2) H* 01/15/20 16:01 Whole Blood INR 6.2 (0.8-1.2) H* 01/16/20 08:35 Sodium 150 mmol/L (135-145) H 01/16/20 08:35 Potassium 3.0 mmol/L (3.5-5.0) L 01/16/20 08:35 Chloride 116 mmol/L (101-111) H 01/16/20 08:35 Carbon Dioxide 25 mmol/L (21-32) 01/16/20 08:35 Anion Gap 9.0 (6-13) 01/16/20 08:35 BUN 83 mg/dL (6-20) H* 01/16/20 08:35 Creatinine 4.3 mg/dL (0.4-1.0) H 01/16/20 08:35 Estimated GFR (MDRD) 10 (>89) L 01/16/20 08:35 Glucose 136 mg/dL (70-100) H 01/16/20 08:35 Lactic Acid 1.4 mmol/L (0.5-2.2) 01/15/20 12:55 Calcium 10.4 mg/dL (8.5-10.3) H 01/16/20 08:35 Total Bilirubin 1.2 mg/dL (0.2-1.0) H 01/15/20 12:55 AST 42 IU/L (10-42) 01/15/20 12:55 ALT 21 IU/L (10-60) 01/15/20 12:55 Alkaline Phosphatase 27 IU/L (42-121) L 01/15/20 12:55 Troponin I High Sens 76.8 ng/L (2.3-14.8) H* 01/15/20 16:01 B-Natriuretic Peptide 88 pg/mL (5-100) 01/15/20 12:55 Total Protein 6.6 g/dL (6.7-8.2) L 01/15/20 12:55 Albumin 3.3 g/dL (3.2-5.5) 01/15/20 12:55 Globulin 3.3 g/dL (2.1-4.2) 01/15/20 12:55 Albumin/Globulin Ratio 1.0 (1.0-2.2) 01/15/20 12:55 Lipase 56 U/L (22-51) H 01/15/20 12:55 Urine Color DARK YELLOW 01/15/20 13:32 Urine Clarity CLOUDY (CLEAR) 01/15/20 13:32 Urine pH 8.0 PH (5.0-7.5) H 01/15/20 13:32 Ur Specific [place] 1.020 (1.002-1.030) 01/15/20 13:32 Urine Protein 100 mg/dL (NEGATIVE) H 01/15/20 13:32 Urine Glucose (UA) NEGATIVE mg/dL (NEGATIVE) 01/15/20 13:32 Urine Ketones TRACE mg/dL (NEGATIVE) 01/15/20 13:32 Urine Occult Blood SMALL (NEGATIVE) H 01/15/20 13:32 Urine Nitrite NEGATIVE (NEGATIVE) 01/15/20 13:32 Urine Bilirubin NEGATIVE (NEGATIVE) 01/15/20 13:32 Urine Urobilinogen 0.2 (NORMAL) E.U./dL (NORMAL) 01/15/20 13:32 Ur Leukocyte Esterase LARGE (NEGATIVE) H 01/15/20 13:32 Urine RBC 11-25 /HPF (0-5) H 01/15/20 13:32 Urine WBC >25 /HPF (0-5) H 01/15/20 13:32 Ur Epithelial Cells FEW Renal Tubular /HPF (<= Few) 01/15/20 13:32 Ur Squamous Epith Cells RARE Squamous (<= Few) 01/15/20 13:32 Urine Crystals 3-5 Triple Phosphate /LPF 01/15/20 13:32 Urine Bacteria Moderate /HPF (None Seen) H 01/15/20 13:32 Ur Microscopic Review INDICATED 01/15/20 13:32 Urine Culture Comments INDICATED 01/15/20 13:32 Coronavirus (PCR) NEGATIVE 01/15/20 13:17
[2020-01-16] MEDS: POTASSIUM CHLOR 10 MEQ/100 ML 10 MEQ/100 ML BAG IV SCH ×2 (18:07→19:05)
[2020-01-16] MEDS: SODIUM CHLORIDE FLUSH 0.9% 10 ML SYRINGE IVP PRN ×2 (18:08→20:16)
[2020-01-17] MEDS: SODIUM CHLORIDE FLUSH 0.9% 10 ML SYRINGE IVP SCH ×3 (01:25→15:48)
[2020-01-17] MEDS: MIN OIL/DIMETHICON/COCONUT OIL 92 GM TUBE TOP PRN (05:29)
[2020-01-17] MEDS: DEXTROSE 5%-0.45% NACL 1,000 ML IV SCH ×3 (05:29→14:33)
[2020-01-17 05:54] LABS: BASOPHILS % (AUTO) 0.4 %; EOSINOPHILS # (AUTO) 0.2 10^3/uL (0.0-0.7); EOSINOPHILS % (AUTO) 1.9 %; HGB - HEMOGLOBIN 8.8 g/dL (12.0-16.0); LYMPHOCYTES # (AUTO) 1.5 10^3/uL (1.5-3.5); LYMPHOCYTES % (AUTO) 17.2 %; MEAN CORPUSCULAR HEMOGLOBIN 30.1 pg (27.0-31.0); MEAN CORPUSCULAR HGB CONC 31.8 g/dL (32.0-36.0); MEAN CORPUSCULAR VOLUME 94.9 fL (81.0-99.0); MEAN PLATELET VOLUME 10.3 fL (7.9-10.8); MONOCYTES # (AUTO) 0.8 10^3/uL (0.0-1.0); MONOCYTES % (AUTO) 8.7 %; NEUTROPHILS # (AUTO) 6.4 10^3/uL (1.5-6.6); NEUTROPHILS % (AUTO) 71.4 %; PLT - PLATELET COUNT 210 10^3/uL (130-450); RED BLOOD COUNT 2.92 10^6/uL (4.20-5.40); RED CELL DISTRIBUTION WIDTH 16.3 % (12.0-15.0); WHITE BLOOD COUNT 8.9 x10^3/uL (4.8-10.8)
[2020-01-17 05:58] LABS: CALCIUM 9.5 mg/dL (8.5-10.3); CREATININE 3.4 mg/dL (0.4-1.0)
[2020-01-17 06:00] LABS: PT - PROTHROMBIN TIME 80.5 secs (9.9-12.6)
[2020-01-17 06:23] LABS: INR 7.9 (0.8-1.2)
--- NOTE | 2020-01-17 08:57 | PROVIDER PROGRESS NOTE ---
Assessment/Plan - Problem List (1) Altered mental status Qualifiers: Qualified Code(s): R40.2422 - [place] coma scale score 9-12, at arrival to emergency department Assessment/Plan: Some noticed improvement in mentation with opening her eyes to her name, and then follows voice with her eyes. Continue iv hydration and treating infection. The son wants her to have full medical management, and will be here today to witness how she is doing. He agreed to have her go to SNF for rehab after this hospital stay. Will therefore order PT, OT and Speech Therapy for swallowing eval, as she awakens more, hopefully tomorrow. Otherwise, she would need a Dobhoff for enteral nutrition. (2) UTI (urinary tract infection) Qualifiers: Urinary tract infection type: site unspecified Hematuria presence: without hematuria Qualified Code(s): N39.0 - Urinary tract infection, site not specif ied Assessment/Plan: The urine culture has grown Proteus mirabilis. It is sensitive to Ceftriaxone. Continue iv Ceftriaxone currently since she has not awoken to swallow po antibiotics. (3) Proteus mirabilis infection Assessment/Plan: As above in #2 (4) Acute kidney injury superimposed on chronic kidney disease Assessment/Plan: Daily improvement in creat seen on labs. Continue with gentle iv hydration and avoid nephrotoxins. (5) Hypokalemia Assessment/Plan: She got K replacement yesterday with only 20 mEq, since she in renal failure. K is still 3.0 today. Will replace K again today. Follow BMP and Mg daily. (6) Hypernatremia Assessment/Plan: Na 149>> 150>> 144 today. Improved serum sodium since yesterday, ever since she got a reliable iv access; the PICC line was OKd to use at mid-day yesterday. Continue iv hydration with D5 1/2 NS. Follow BMP daily. (7) Elevated INR Assessment/Plan: Worse INR of 7.9 today even since yesterday's 6.2, but no signs of bleeding. It is likely from her antibiotics and dehydration. Will give 2.5 mg vitamin K iv, as per guidelines, in a pt with high bleeding risk (frail, elderly). Follow INR daily. When it is restarted, will use Coumadin, not Warfarin (see why below), and at a lower dose. (8) Warfarin not tolerated Assessment/Plan: The son gave this information yesterday; it sI understood that she does not tolerate the generic med Warfarin but is OK with Coumadin. He did not know what the sign of "not tolerating" Warfarin was, however. (9) Dehydration Assessment/Plan: She still has skin tenting. Her mucosa is moist today Her mentation is slightly improved, with appropriate awakening to her name. Continue iv fluids, will decrease the rate to prevent anasarca, as she is already 4.5L (+) since admission. (10) Cerebrovascular accident, old Assessment/Plan: Seen on CT head done at admission. (11) Dementia Assessment/Plan: As per Hx. She has not been awake enough for us to assess her mentation yet. Son states she has a mild memory loss problem. Her true level of dementia is unclear from records. (12) Severe protein-calorie malnutrition Assessment/Plan: The patient was seen by RD and confirmed that she has had weight loss of greater than 5% in 1 month Nutritional intake of less than 50% of recommended for 2 weeks or more. Continue with peripheral D5 in her IV for calories. If she does not awaken in the next 24 to 48 hours to start an oral diet, will begin peripheral IV nutrition, since the son wants everything done. (13) Anemia Assessment/Plan: She is 4.5L in (+) fluid balance since admission. Therefore, some hemodilution of Hgb value is expected. Will check Iron stores, B12 and Folate. Follow CBC daily. Unsure if the son would want her to get a tranfusion if Hgb <7. - Current Meds Current Meds: Current Medications Generic Name Dose Route Start Last Admin Trade Name [place] PRN Reason Stop Dose Admin Famotidine 20 mg 01/15/20 21:00 01/16/20 20:16 Pepcid IVP 20 mg QPM MARIA DEL CARMEN Administration Ceftriaxone Sodium 1 gm/ 100 mls @ 200 mls/hr 01/16/20 09:00 01/16/20 12:30 Sodium Chloride IV Infused DAILY MARIA DEL CARMEN Infusion Dextrose/Sodium Chloride 1,000 mls @ 125 mls/hr 01/15/20 23:00 01/17/20 05:29 D5.45ns IV 125 mls/hr .Q8H MARIA DEL CARMEN Administration Mineral Oil 1 applic 01/15/20 16:36 01/17/20 05:29 [place] TOP 1 applic PRN PRN Administration Skin Care Sodium Chloride 10 ml 01/15/20 14:22 01/16/20 20:16 Normal Saline Flush 0.9% IVP 10 ml PRN PRN Administration NEEDED PER PROVIDER ORDERS Sodium Chloride 10 ml 01/15/20 17:00 01/17/20 01:25 Normal Saline Flush 0.9% IVP Not Given 0100,0900,1700 MARIA DEL CARMEN - Lab Result Fish Bone Diagrams: 01/17/20 05:40 01/17/20 05:40 - Additional Planning My Orders: My Active Orders 01/16/20 07:59 Miscellaneous Laboratory Order [LAB] Urgent 01/16/20 08:01 PICC Line Insert [RC] .ONCE 01/16/20 09:00 cefTRIAXone [Rocephin] 1 gm Sodium Chloride 0.9% Minibag [Normal Saline 0.9% Minibag] 100 ml IV DAILY 01/16/20 11:29 Miscellaenous Nursing Order [RC] QSHIFT 01/18/20 05:00 BMP - BASIC METABOLIC PANEL [CHEM] DAILYLAB CBC - COMP BLD CT W/AUTO DIFF [HEME] DAILYLAB PT WITH INR [COAG] DAILYLAB Subjective - Subjective Patient Reports: Resting Comfortably, Other (She opened her eyes and turned her head toward the sound of her name, did not answer a question however. This afternoon, she was saying one word answers to her RN.) Objective Vital Signs: Vital Signs - 24 hr 01/16/20 01/16/20 01/16/20 09:22 10:47 13:00 Temperature 36.5 C 36.5 C 36.4 C L Heart Rate 74 Heart Rate [ 78 52 L Monitoring electrodes] Heart Rate [ Radial] Respiratory 16 12 16 Rate Blood Pressure 142/72 H 121/63 [Right Ankle] Blood Pressure [Right Brachial artery] O2 Saturation 100 97 87 L 01/16/20 01/16/20 01/16/20 15:41 16:03 20:16 Temperature 36.4 C L 36.6 C Heart Rate Heart Rate [ Monitoring electrodes] Heart Rate [ 80 78 Radial] Respiratory 16 19 Rate Blood Pressure 132/54 H 146/47 H [Right Ankle] Blood Pressure [Right Brachial artery] O2 Saturation 99 100 01/17/20 01/17/2020 01:00 05:00 08:52 Temperature 36.5 C 36.8 C 36.6 C Heart Rate Heart Rate [ Monitoring electrodes] Heart Rate [ 77 73 71 Radial] Respiratory 14 12 16 Rate Blood Pressure 126/53 L [Right Ankle] Blood Pressure 131/59 H 133/68 H [Right Brachial artery] O2 Saturation 98 96 98 Oxygen O2 Source Room air I&O (Last 24 Hrs): Intake and Output Totals x24h 01/15/20 01/16/20 01/17/20 23:59 23:59 23:59 Intake Total 558.372 1284.72 1000 Output Total 50 475 Balance 212.943 6023.72 1000 General: Other (Lethargic) HEENT: Mucous membr. moist/pink, Other (Eyes less sunken than yesterday.) Neck: Supple Neuro: Other (Obtunded but able to awaken and focus on sounds and people. Moves everything spontaneously.) Cardiovascular: No murmurs Respiratory: No respiratory distress Abdomen: Soft Extremities: No edema, Other (Still has tenting of skin of arms.) - Results Results: Laboratory Results WBC 8.9 x10^3/uL (4.8-10.8) 01/17/20 05:40 RBC 2.92 10^6/uL (4.20-5.40) L 01/17/20 05:40 Hgb 8.8 g/dL (12.0-16.0) L 01/17/20 05:40 Hct 27.7 % (37.0-47.0) L 01/17/20 05:40 MCV 94.9 fL (81.0-99.0) 01/17/20 05:40 MCH 30.1 pg (27.0-31.0) 01/17/20 05:40 MCHC 31.8 g/dL (32.0-36.0) L 01/17/20 05:40 RDW 16.3 % (12.0-15.0) H 01/17/20 05:40 Plt Count 210 10^3/uL (130-450) 01/17/20 05:40 MPV 10.3 fL (7.9-10.8) 01/17/20 05:40 Neut # (Auto) 6.4 10^3/uL (1.5-6.6) 01/17/20 05:40 Lymph # (Auto) 1.5 10^3/uL (1.5-3.5) 01/17/20 05:40 [place] # (Auto) 0.8 10^3/uL (0.0-1.0) 01/17/20 05:40 Eos # (Auto) 0.2 10^3/uL (0.0-0.7) 01/17/20 05:40 Baso # (Auto) 0.0 10^3/uL (0.0-0.1) 01/17/20 05:40 Absolute Nucleated RBC 0.00 x10^3/uL 01/17/20 05:40 Nucleated RBC % 0.0 /100WBC 01/17/20 05:40 PT 80.5 secs (9.9-12.6) H 01/17/20 05:40 INR 7.9 (0.8-1.2) H* 01/17/20 05:40 Whole Blood INR 6.2 (0.8-1.2) H* 01/16/20 08:35 Sodium 144 mmol/L (135-145) 01/17/20 05:40 Potassium 3.0 mmol/L (3.5-5.0) L 01/17/20 05:40 Chloride 114 mmol/L (101-111) H 01/17/20 05:40 Carbon Dioxide 24 mmol/L (21-32) 01/17/20 05:40 Anion Gap 6.0 (6-13) 01/17/20 05:40 BUN 64 mg/dL (6-20) H 01/17/20 05:40 Creatinine 3.4 mg/dL (0.4-1.0) H 01/17/20 05:40 Estimated GFR (MDRD) 13 (>89) L 01/17/20 05:40 Glucose 133 mg/dL (70-100) H 01/17/20 05:40 Lactic Acid 1.4 mmol/L (0.5-2.2) 01/15/20 12:55 Calcium 9.5 mg/dL (8.5-10.3) 01/17/20 05:40 Total Bilirubin 1.2 mg/dL (0.2-1.0) H 01/15/20 12:55 AST 42 IU/L (10-42) 01/15/20 12:55 ALT 21 IU/L (10-60) 01/15/20 12:55 Alkaline Phosphatase 27 IU/L (42-121) L 01/15/20 12:55 Troponin I High Sens 76.8 ng/L (2.3-14.8) H* 01/15/20 16:01 B-Natriuretic Peptide 88 pg/mL (5-100) 01/15/20 12:55 Total Protein 6.6 g/dL (6.7-8.2) L 01/15/20 12:55 Albumin 3.3 g/dL (3.2-5.5) 01/15/20 12:55 Globulin 3.3 g/dL (2.1-4.2) 01/15/20 12:55 Albumin/Globulin Ratio 1.0 (1.0-2.2) 01/15/20 12:55 Lipase 56 U/L (22-51) H 01/15/20 12:55 Urine Color DARK YELLOW 01/15/20 13:32 Urine Clarity CLOUDY (CLEAR) 01/15/20 13:32 Urine pH 8.0 PH (5.0-7.5) H 01/15/20 13:32 Ur Specific [place] 1.020 (1.002-1.030) 01/15/20 13:32 Urine Protein 100 mg/dL (NEGATIVE) H 01/15/20 13:32 Urine Glucose (UA) NEGATIVE mg/dL (NEGATIVE) 01/15/20 13:32 Urine Ketones TRACE mg/dL (NEGATIVE) 01/15/20 13:32 Urine Occult Blood SMALL (NEGATIVE) H 01/15/20 13:32 Urine Nitrite NEGATIVE (NEGATIVE) 01/15/20 13:32 Urine Bilirubin NEGATIVE (NEGATIVE) 01/15/20 13:32 Urine Urobilinogen 0.2 (NORMAL) E.U./dL (NORMAL) 01/15/20 13:32 Ur Leukocyte Esterase LARGE (NEGATIVE) H 01/15/20 13:32 Urine RBC 11-25 /HPF (0-5) H 01/15/20 13:32 Urine WBC >25 /HPF (0-5) H 01/15/20 13:32 Ur Epithelial Cells FEW Renal Tubular /HPF (<= Few) 01/15/20 13:32 Ur Squamous Epith Cells RARE Squamous (<= Few) 01/15/20 13:32 Urine Crystals 3-5 Triple Phosphate /LPF 01/15/20 13:32 Urine Bacteria Moderate /HPF (None Seen) H 01/15/20 13:32 Ur Microscopic Review INDICATED 01/15/20 13:32 Urine Culture Comments INDICATED 01/15/20 13:32 Coronavirus (PCR) NEGATIVE 01/15/20 13:17
[2020-01-17] MEDS: cefTRIAXone 1 GM in SODIUM CHLORIDE 0.9% MINIBAG 100 ML IV SCH (08:59)
[2020-01-17] MEDS ORDERED: PHYTONADIONE 10 MG/ML AMP IVP STA (09:28)
[2020-01-17] MEDS ORDERED: PHYTONADIONE INJ (ADULT) 2.5 MG in SODIUM CHLORIDE 0.9% 50 ML IV ONE (10:15)
[2020-01-17] MEDS: POTASSIUM CHLOR 10 MEQ/100 ML 10 MEQ/100 ML BAG IV SCH ×3 (11:13→13:36)
[2020-01-17] MEDS: SODIUM CHLORIDE FLUSH 0.9% 10 ML SYRINGE IVP PRN (20:06)
[2020-01-17] MEDS: FAMOTIDINE 20 MG/2 ML SYRINGE IVP SCH (20:06)
[2020-01-18] MEDS: MIN OIL/DIMETHICON/COCONUT OIL 92 GM TUBE TOP PRN ×3 (01:00→20:05)
[2020-01-18] MEDS: SODIUM CHLORIDE FLUSH 0.9% 10 ML SYRINGE IVP SCH ×3 (01:47→16:39)
[2020-01-18] MEDS: DEXTROSE 5%-0.45% NACL 1,000 ML IV SCH (02:06)
[2020-01-18 05:26] LABS: BASOPHILS % (AUTO) 0.3 %; EOSINOPHILS # (AUTO) 0.2 10^3/uL (0.0-0.7); EOSINOPHILS % (AUTO) 2.6 %; HGB - HEMOGLOBIN 8.2 g/dL (12.0-16.0); LYMPHOCYTES # (AUTO) 1.9 10^3/uL (1.5-3.5); LYMPHOCYTES % (AUTO) 21.3 %; MEAN CORPUSCULAR HEMOGLOBIN 28.7 pg (27.0-31.0); MEAN CORPUSCULAR HGB CONC 31.5 g/dL (32.0-36.0); MEAN CORPUSCULAR VOLUME 90.9 fL (81.0-99.0); MEAN PLATELET VOLUME 10.4 fL (7.9-10.8); MONOCYTES # (AUTO) 0.7 10^3/uL (0.0-1.0); MONOCYTES % (AUTO) 7.9 %; NEUTROPHILS % (AUTO) 67.4 %; PLT - PLATELET COUNT 174 10^3/uL (130-450); RED BLOOD COUNT 2.86 10^6/uL (4.20-5.40); RED CELL DISTRIBUTION WIDTH 16.1 % (12.0-15.0); WHITE BLOOD COUNT 8.9 x10^3/uL (4.8-10.8)
[2020-01-18 05:29] LABS: INR 1.6 (0.8-1.2); PT - PROTHROMBIN TIME 17.4 secs (9.9-12.6)
[2020-01-18 05:59] LABS: BUN - BLOOD UREA NITROGEN 48 mg/dL (6-20); CALCIUM 9.2 mg/dL (8.5-10.3); CARBON DIOXIDE - CO2 21 mmol/L (21-32); CHLORIDE 114 mmol/L (101-111); CREATININE 2.7 mg/dL (0.4-1.0); GLUCOSE 108 mg/dL (70-100); IRON 19 ug/dL (28-170); MAGNESIUM 1.7 mg/dL (1.7-2.8); SODIUM 140 mmol/L (135-145); TRANSFERRIN < 70 mg/dL (192-382)
[2020-01-18 06:04] LABS: FOLATE 17.66 ng/mL (5.90 - >24.8)
[2020-01-18] MEDS: cefTRIAXone 1 GM in SODIUM CHLORIDE 0.9% MINIBAG 100 ML IV SCH (10:16)
[2020-01-18] MEDS: POTASSIUM CHLOR 10 MEQ/100 ML 10 MEQ/100 ML BAG IV SCH ×2 (10:16→11:31)
[2020-01-18] MEDS: ENOXAPARIN 60 MG/0.6 ML SYRINGE SUBQ SCH (10:16)
[2020-01-18] MEDS: D5.45NS W/20 MEQ KCL 1,000 ML IV SCH ×2 (10:16→21:51)
--- NOTE | 2020-01-18 16:42 | PROVIDER PROGRESS NOTE ---
Assessment/Plan - Problem List (1) Altered mental status Qualifiers: Qualified Code(s): R40.2422 - Reading coma scale score 9-12, at arrival to emergency department Assessment/Plan: She has minimal but positive improvement in mentation daily, ever since IV hydration started and the treatment for infection. Bedside speech pathology evaluation of swallowing was done. She opens her eyes to her name but did not sustain wakefulness enough to perform the swallow. She did not follow commands or keep her eyes open. She did try to take small bites of applesauce but then did not close her mouth around the spoon. The speech pathologist who saw her, Shauna Montgomery, spoke to me and says that she has known Grace since September 2019 from [facility], from Home Health visits. The patient even then had difficulty eating and swallowing. The impression is that she cannot sustain enough oral intake to maintain adequate nutrition and hydration, she is at risk for aspiration, she is at risk for sepsis from dehydration. 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 I will discuss with him whether to proceed in that direction. He did not want to consider Palliative care or Hospice yet when I spoke to him about her care plan 2 days ago. (2) UTI (urinary tract infection) Qualifiers: Urinary tract infection type: site unspecified Hematuria presence: without hematuria Qualified Code(s): N39.0 - Urinary tract infection, site not specified Assessment/Plan: She cannot reliably take p.o. antibiotics. Continue ceftriaxone, a 7-day course will be planned. (3) Proteus mirabilis infection Assessment/Plan: Her urine culture grew Proteus mirabilis. Blood cultures are negative to date. The plan is as in #2 above (4) Acute kidney injury superimposed on chronic kidney disease Assessment/Plan: Improving BUN/creatinine ratio daily. Continue gentle peripheral IV hydration since she cannot take adequate oral hydration. Follow BMP daily. (5) Hypokalemia Assessment/Plan: Improving potassium daily. Continue with potassium replacement and peripheral IV and riders of K if needed. Follow BMP daily. (6) Hypernatremia Assessment/Plan: Sodium was 140 today. Continue with one half NS as her peripheral IV, slowly decreasing the rate. Follow BMP daily. (7) Elevated INR Assessment/Plan: She required vitamin K 2.5 mg yesterday (given because of risk of bleeding in this elderly frail person with a rising INR). Now her INR is normal at 1.6. Will start Lovenox bridging until she can swallow Coumadin again. With her decreased renal function, she will get 1 mg/kg daily, discussed with our Pharmacist. (8) Warfarin not tolerated Assessment/Plan: As per the son. I understood this to me she does not tolerate generic warfarin but needs Coumadin. (9) Dehydration Assessment/Plan: She now appears euvolemic clinically. The labs still show prerenal azotemia. (10) Cerebrovascular accident, old Assessment/Plan: Seen on head CT. (11) Dementia Assessment/Plan: As per Hx from the [facility]. (12) Severe protein-calorie malnutrition Assessment/Plan: As above in #2 (13) Anemia Assessment/Plan: Dropping hemoglobin daily, most likely from hemodilution. Her levels were checked and she has adequate B12 and folate stores, but low iron and Transferrin. No % sat was done. Will consider iron replacement. - Current Meds Current Meds: Current Medications Generic Name Dose Route Start Last Admin Trade Name Freq PRN Reason Stop Dose Admin Enoxaparin Sodium 50 mg 01/18/20 10:00 01/18/20 10:16 Lovenox SUBQ 50 mg DAILY MARIA DEL CARMEN Administration Famotidine 20 mg 01/15/20 21:00 01/17/20 20:06 Pepcid IVP 20 mg QPM MARIA DEL CARMEN Administration Ceftriaxone Sodium 1 gm/ 100 mls @ 200 mls/hr 01/16/20 09:00 01/18/20 11:02 Sodium Chloride IV Infused DAILY MARIA DEL CARMEN Infusion Potassium Chloride/Dextrose/Sod Cl 1,000 mls @ 83.333 mls/hr 01/18/20 10:00 01/18/20 10:16 D5.45ns W/20 Meq Kcl IV 83.333 mls/hr .Q12H MARIA DEL CARMEN Administration Mineral Oil 1 applic 01/15/20 16:36 01/18/20 05:20 Cavilon TOP 1 applic PRN PRN Administration Skin Care Sodium Chloride 10 ml 01/15/20 14:22 01/17/20 20:06 Normal Saline Flush 0.9% IVP 10 ml PRN PRN Administration NEEDED PER PROVIDER ORDERS Sodium Chloride 10 ml 05/05/20 17:00 01/18/20 10:16 Normal Saline Flush 0.9% IVP Not Given 0100,0900,1700 MARIA DEL CARMEN - Lab Result Fish Bone Diagrams: 01/18/20 04:30 01/18/20 04:30 - Additional Planning My Orders: My Active Orders 01/18/20 POTASSIUM,URINE [UC] Urgent Clinical Swallow Evaluation [ST] Routine 01/18/20 10:00 D5.45ns W/20 Meq KCl 1,000 ml IV 83.333 mls/hr Enoxaparin [Lovenox] 50 mg SUBQ DAILY 01/19/20 05:00 BMP - BASIC METABOLIC PANEL [CHEM] DAILYLAB CBC - COMP BLD CT W/AUTO DIFF [HEME] DAILYLAB MAGNESIUM [CHEM] DAILYLAB 01/20/20 05:00 BMP - BASIC METABOLIC PANEL [CHEM] DAILYLAB CBC - COMP BLD CT W/AUTO DIFF [HEME] DAILYLAB MAGNESIUM [CHEM] DAILYLAB Subjective - Subjective Patient Reports: Resting Comfortably Nursing Reports: Other (She is whispering sentences to her nurse, they are audible and intermittently makes sense. This morning she said "I feel better".) Objective Vital Signs: Vital Signs - 24 hr 01/17/20 01/17/20 01/18/20 20:00 23:54 05:00 Temperature 36.5 C 36.8 C 36.6 C Heart Rate [ 82 76 82 Radial] Respiratory 17 16 12 Rate Blood Pressure 112/73 137/67 H 142/64 H [Right Ankle] Blood Pressure [Right Brachial artery] O2 Saturation 100 99 98 01/18/20 01/18/20 01/18/20 09:00 12:58 15:44 Temperature 36.9 C 36.4 C L 37.2 C Heart Rate [ 80 73 80 Radial] Respiratory 16 15 16 Rate Blood Pressure [Right Ankle] Blood Pressure 126/63 139/74 H 124/67 [Right Brachial artery] O2 Saturation 99 100 100 Oxygen O2 Source Room air I&O (Last 24 Hrs): Intake and Output Totals x24h 01/16/20 01/17/20 01/18/20 23:59 23:59 23:59 Intake Total 3504.72 2378.624 2165 Output Total 475 1125 1000 Balance 3029.72 5807.743 1317 General: Other (Obtunded but awakens to name.) HEENT: Mucous membr. moist/pink Neck: Supple, No JVD Neuro: Other (Bradykinetic, moves all extremities spontaneously, tries to whispers in sentences, is more alert compared to yesterday.) Cardiovascular: Regular rate, No murmurs Respiratory: No respiratory distress, Breath sounds nml Abdomen: Soft Extremities: No edema - Results Results: Laboratory Results WBC 8.9 x10^3/uL (4.8-10.8) 01/18/20 04:30 RBC 2.86 10^6/uL (4.20-5.40) L 01/18/20 04:30 Hgb 8.2 g/dL (12.0-16.0) L 01/18/20 04:30 Hct 26.0 % (37.0-47.0) L 01/18/20 04:30 MCV 90.9 fL (81.0-99.0) 01/18/20 04:30 MCH 28.7 pg (27.0-31.0) 01/18/20 04:30 MCHC 31.5 g/dL (32.0-36.0) L 01/18/20 04:30 RDW 16.1 % (12.0-15.0) H 01/18/20 04:30 Plt Count 174 10^3/uL (130-450) 01/18/20 04:30 MPV 10.4 fL (7.9-10.8) 01/18/20 04:30 Neut # (Auto) 6.0 10^3/uL (1.5-6.6) 01/18/20 04:30 Lymph # (Auto) 1.9 10^3/uL (1.5-3.5) 01/18/20 04:30 [place] # (Auto) 0.7 10^3/uL (0.0-1.0) 01/18/20 04:30 Eos # (Auto) 0.2 10^3/uL (0.0-0.7) 01/18/20 04:30 Baso # (Auto) 0.0 10^3/uL (0.0-0.1) 01/18/20 04:30 Absolute Nucleated RBC 0.00 x10^3/uL 01/18/20 04:30 Nucleated RBC % 0.0 /100WBC 01/18/20 04:30 PT 17.4 secs (9.9-12.6) H 01/18/20 04:30 INR 1.6 (0.8-1.2) H 01/18/20 04:30 Whole Blood INR 6.2 (0.8-1.2) H* 01/16/20 08:35 Sodium 140 mmol/L (135-145) 01/18/20 04:30 Potassium 2.9 mmol/L (3.5-5.0) L 01/18/20 04:30 Chloride 114 mmol/L (101-111) H 01/18/20 04:30 Carbon Dioxide 21 mmol/L (21-32) 01/18/20 04:30 Anion Gap 5.0 (6-13) L 01/18/20 04:30 BUN 48 mg/dL (6-20) H 01/18/20 04:30 Creatinine 2.7 mg/dL (0.4-1.0) H 01/18/20 04:30 Estimated GFR (MDRD) 17 (>89) L 01/18/20 04:30 Glucose 108 mg/dL (70-100) H 01/18/20 04:30 Lactic Acid 1.4 mmol/L (0.5-2.2) 01/15/20 12:55 Calcium 9.2 mg/dL (8.5-10.3) 01/18/20 04:30 Magnesium 1.7 mg/dL (1.7-2.8) 01/18/20 04:30 Iron 19 ug/dL (28-170) L 01/18/20 04:30 Transferrin < 70 mg/dL (192-382) L 01/18/20 04:30 Total Bilirubin 1.2 mg/dL (0.2-1.0) H 01/15/20 12:55 AST 42 IU/L (10-42) 01/15/20 12:55 ALT 21 IU/L (10-60) 01/15/20 12:55 Alkaline Phosphatase 27 IU/L (42-121) L 01/15/20 12:55 Troponin I High Sens 76.8 ng/L (2.3-14.8) H* 01/15/20 16:01 B-Natriuretic Peptide 88 pg/mL (5-100) 01/15/20 12:55 Total Protein 6.6 g/dL (6.7-8.2) L 01/15/20 12:55 Albumin 3.3 g/dL (3.2-5.5) 01/15/20 12:55 Globulin 3.3 g/dL (2.1-4.2) 01/15/20 12:55 Albumin/Globulin Ratio 1.0 (1.0-2.2) 01/15/20 12:55 Lipase 56 U/L (22-51) H 01/15/20 12:55 Vitamin B12 > 7000 pg/mL (180-914) H 01/18/20 04:30 Folate 17.66 ng/mL (5.90 - >24.8) 01/18/20 04:30 Urine Color DARK YELLOW 01/15/20 13:32 Urine Clarity CLOUDY (CLEAR) 01/15/20 13:32 Urine pH 8.0 PH (5.0-7.5) H 01/15/20 13:32 Ur Specific [place] 1.020 (1.002-1.030) 01/15/20 13:32 Urine Protein 100 mg/dL (NEGATIVE) H 01/15/20 13:32 Urine Glucose (UA) NEGATIVE mg/dL (NEGATIVE) 01/15/20 13:32 Urine Ketones TRACE mg/dL (NEGATIVE) 01/15/20 13:32 Urine Occult Blood SMALL (NEGATIVE) H 01/15/20 13:32 Urine Nitrite NEGATIVE (NEGATIVE) 01/15/20 13:32 Urine Bilirubin NEGATIVE (NEGATIVE) 01/15/20 13:32 Urine Urobilinogen 0.2 (NORMAL) E.U./dL (NORMAL) 01/15/20 13:32 Ur Leukocyte Esterase LARGE (NEGATIVE) H 01/15/20 13:32 Urine RBC 11-25 /HPF (0-5) H 01/15/20 13:32 Urine WBC >25 /HPF (0-5) H 01/15/20 13:32 Ur Epithelial Cells FEW Renal Tubular /HPF (<= Few) 01/15/20 13:32 Ur Squamous Epith Cells RARE Squamous (<= Few) 01/15/20 13:32 Urine Crystals 3-5 Triple Phosphate /LPF 01/15/20 13:32 Urine Bacteria Moderate /HPF (None Seen) H 01/15/20 13:32 Ur Microscopic Review INDICATED 01/15/20 13:32 Urine Culture Comments INDICATED 01/15/20 13:32 Urine Creatinine 32.3 mg/dL 01/18/20 10:52 Coronavirus (PCR) NEGATIVE 01/15/20 13:17
[2020-01-18] MEDS: FAMOTIDINE 20 MG/2 ML SYRINGE IVP SCH (20:04)
[2020-01-18] MEDS: SODIUM CHLORIDE FLUSH 0.9% 10 ML SYRINGE IVP PRN (20:04)
[2020-01-19] MEDS: SODIUM CHLORIDE FLUSH 0.9% 10 ML SYRINGE IVP SCH ×3 (00:43→16:24)
[2020-01-19] MEDS ORDERED: SODIUM CHLORIDE FLUSH 0.9% 10 ML SYRINGE IVP PRN (01:22)
[2020-01-19 05:15] LABS: BASOPHILS # (AUTO) 0.1 10^3/uL (0.0-0.1); BASOPHILS % (AUTO) 0.5 %; EOSINOPHILS # (AUTO) 0.3 10^3/uL (0.0-0.7); EOSINOPHILS % (AUTO) 2.7 %; HGB - HEMOGLOBIN 8.7 g/dL (12.0-16.0); LYMPHOCYTES # (AUTO) 1.9 10^3/uL (1.5-3.5); LYMPHOCYTES % (AUTO) 20.5 %; MEAN CORPUSCULAR HEMOGLOBIN 29.1 pg (27.0-31.0); MEAN CORPUSCULAR HGB CONC 31.6 g/dL (32.0-36.0); MEAN PLATELET VOLUME 10.1 fL (7.9-10.8); MONOCYTES # (AUTO) 0.8 10^3/uL (0.0-1.0); MONOCYTES % (AUTO) 8.7 %; NEUTROPHILS # (AUTO) 6.2 10^3/uL (1.5-6.6); NEUTROPHILS % (AUTO) 67.1 %; PLT - PLATELET COUNT 176 10^3/uL (130-450); RED BLOOD COUNT 2.99 10^6/uL (4.20-5.40); RED CELL DISTRIBUTION WIDTH 15.9 % (12.0-15.0); WHITE BLOOD COUNT 9.2 x10^3/uL (4.8-10.8)
[2020-01-19 05:19] LABS: CALCIUM 9.4 mg/dL (8.5-10.3); CREATININE 2.1 mg/dL (0.4-1.0); MAGNESIUM 1.7 mg/dL (1.7-2.8)
[2020-01-19] MEDS: cefTRIAXone 1 GM in SODIUM CHLORIDE 0.9% MINIBAG 100 ML IV SCH (08:02)
[2020-01-19] MEDS: ENOXAPARIN 60 MG/0.6 ML SYRINGE SUBQ SCH (08:04)
[2020-01-19] MEDS: POTASSIUM CHLOR 10 MEQ/100 ML 10 MEQ/100 ML BAG IV SCH ×4 (08:50→11:54)
[2020-01-19] MEDS: D5.45NS W/20 MEQ KCL 1,000 ML IV SCH ×2 (09:46→21:26)
--- NOTE | 2020-01-19 12:43 | PROVIDER PROGRESS NOTE ---
Assessment/Plan - Problem List (1) Altered mental status Qualifiers: Qualified Code(s): R40.2422 - Christine coma scale score 9-12, at arrival to emergency department Assessment/Plan: She has made further progress since 2 days ago, which I explained to the son when he was here visiting today. She is not alert enough to participate with PT which I expected may have been started by today, day 4 of her admission I described to the son the results of the swallowing eval that indicated she cannot swallow enough to hydrate herself and have adequate protein calorie nutrition and therefore is at risk of sepsis plus aspiration. We discussed whether enteral tube feedings/PEG feeds should be started. He agrred to enteral feeds. Will order ng tube and ng feeding. (2) UTI (urinary tract infection) Qualifiers: Urinary tract infection type: site unspecified Hematuria presence: without hematuria Qualified Code(s): N39.0 - Urinary tract infection, site not specified Assessment/Plan: Continue with IV antibiotics since she cannot swallow oral antibx. A 7-day course is planned (3) Proteus mirabilis infection Assessment/Plan: As above in #2 (4) Acute kidney injury superimposed on chronic kidney disease Assessment/Plan: Slowly improving BUN/creatinine daily. Uremia was probably adding to lethargy, is improving.. 10 you with gentle IV hydration. Follow BMP daily. (5) Severe protein-calorie malnutrition Assessment/Plan: She was worsening over the past 4 weeks, and while here she has received only D5 IV for calories. I described to the son the results of the swallowing eval that indicated she cannot swallow enough to hydrate herself and have adequate protein calorie nutrition and therefore is at risk of sepsis plus aspiration. We discussed whether enteral tube feedings/PEG feeds should be started. He agreed to enteral feeds. Will order ng tube and ng feeding. (6) Hypokalemia Assessment/Plan: Replaced with iv riders. Follow BMP daily. (7) Warfarin not tolerated Assessment/Plan: As per the son's report (8) Anemia Assessment/Plan: Her hemoglobin dropped from 11.1 (when she was dehydrated) at admission, down to 8.2 yesterday and is 8.7 today. Dropping hemoglobin daily is most likely from hemodilution since she is 7 L (+) in fluid balance today, since admission. Her serum levels were checked and she has adequate B12 and folate stores, but low iron and Transferrin. No % iron saturation was done. Will consider iron replacement. (9) Cerebrovascular accident, old Assessment/Plan: As per CT head. The son questioned this Dx today, and I explained the CT head reading by radiology. She was on warfarin for stroke prevention in a patient with A. fib. She is currently in sinus rhythm. Her warfarin was stopped due to excessive INR and she is currently on Lovenox at a therapeutic dose, for stroke prophylaxis. (10) Dementia Assessment/Plan: As per records (11) Dehydration Assessment/Plan: Resolved. (12) Hypernatremia Assessment/Plan: Resolved with 4 days of iv hydration with 0.5 NS (13) Elevated INR Assessment/Plan: Resolved after vit K. She is now getting bridging with Lovenox 1 mg/kg daily, based on her creatinine. It is unclear if she will be able to resume oral treatment (with Coumadin) ever - Current Meds Current Meds: Current Medications Generic Name Dose Route Start Last Admin Trade Name Freq PRN Reason Stop Dose Admin Enoxaparin Sodium 50 mg 01/18/20 10:00 01/19/20 08:04 Lovenox SUBQ 50 mg DAILY MARIA DEL CARMEN Administration Famotidine 20 mg 01/15/20 21:00 01/18/20 20:04 Pepcid IVP 20 mg QPM MARIA DEL CARMEN Administration Ceftriaxone Sodium 1 gm/ 100 mls @ 200 mls/hr 01/16/20 09:00 01/19/20 08:49 Sodium Chloride IV Infused DAILY MARIA DEL CARMEN Infusion Potassium Chloride/Dextrose/Sod Cl 1,000 mls @ 83.333 mls/hr 01/18/20 10:00 01/19/20 09:46 D5.45ns W/20 Meq Kcl IV 83.33 mls/hr .Q12H MARIA DEL CARMEN Administration Mineral Oil 1 applic 01/15/20 16:36 01/18/20 20:05 Cavilon TOP 1 applic PRN PRN Administration Skin Care Sodium Chloride 10 ml 01/15/20 14:22 01/18/20 20:04 Normal Saline Flush 0.9% IVP 10 ml PRN PRN Administration NEEDED PER PROVIDER ORDERS Sodium Chloride 10 ml 01/15/20 17:00 01/19/20 08:07 Normal Saline Flush 0.9% IVP 10 ml 0100,0900,1700 MARIA DEL CARMEN Administration - Lab Result Fish Bone Diagrams: 01/19/20 04:40 01/19/20 04:40 - Additional Planning My Orders: My Active Orders 01/19/20 01:22 Sodium Chloride Flush 0.9% [Normal Saline Flush 0.9%] 20 ml IVP PRN PRN 01/20/20 05:00 BMP - BASIC METABOLIC PANEL [CHEM] DAILYLAB CBC - COMP BLD CT W/AUTO DIFF [HEME] DAILYLAB MAGNESIUM [CHEM] DAILYLAB Subjective - Subjective Patient Reports: Other (sleeping when I saw her) Nursing Reports: Other (Folows voice, whispers one-word answers) Objective Vital Signs: Vital Signs - 24 hr 01/18/20 01/18/20 01/18/20 12:58 15:44 19:56 Temperature 36.4 C L 37.2 C 37.3 C Heart Rate [ 73 80 80 Radial] Respiratory 15 16 17 Rate Blood Pressure [Left Radial artery] Blood Pressure 139/74 H 124/67 122/71 [Right Brachial artery] O2 Saturation 100 100 100 01/19/20 01/19/20 01/19/20 00:22 05:00 08:13 Temperature 36.4 C L 37.2 C 36.8 C Heart Rate [ 80 77 85 Radial] Respiratory 16 16 18 Rate Blood Pressure 142/76 H [Left Radial artery] Blood Pressure 139/80 H 133/84 H [Right Brachial artery] O2 Saturation 100 100 100 Oxygen O2 Source Room air I&O (Last 24 Hrs): Intake and Output Totals x24h 01/17/20 01/18/20 01/19/20 23:59 23:59 23:59 Intake Total 2378.624 3124.42 1384.683 Output Total 1125 1500 250 Balance 1815.289 4902.42 1134.683 General: Other (Somnolent) HEENT: Mucous membr. moist/pink Neck: Supple, No JVD Neuro: Other (Lethargic) Cardiovascular: Regular rate Respiratory: No respiratory distress Abdomen: Soft Extremities: No edema - Results Results: Laboratory Results WBC 9.2 x10^3/uL (4.8-10.8) 01/19/20 04:40 RBC 2.99 10^6/uL (4.20-5.40) L 01/19/20 04:40 Hgb 8.7 g/dL (12.0-16.0) L 01/19/20 04:40 Hct 27.5 % (37.0-47.0) L 01/19/20 04:40 MCV 92.0 fL (81.0-99.0) 01/19/20 04:40 MCH 29.1 pg (27.0-31.0) 01/19/20 04:40 MCHC 31.6 g/dL (32.0-36.0) L 01/19/20 04:40 RDW 15.9 % (12.0-15.0) H 01/19/20 04:40 Plt Count 176 10^3/uL (130-450) 01/19/20 04:40 MPV 10.1 fL (7.9-10.8) 01/19/20 04:40 Neut # (Auto) 6.2 10^3/uL (1.5-6.6) 01/19/20 04:40 Lymph # (Auto) 1.9 10^3/uL (1.5-3.5) 01/19/20 04:40 [place] # (Auto) 0.8 10^3/uL (0.0-1.0) 01/19/20 04:40 Eos # (Auto) 0.3 10^3/uL (0.0-0.7) 01/19/20 04:40 Baso # (Auto) 0.1 10^3/uL (0.0-0.1) 01/19/20 04:40 Absolute Nucleated RBC 0.00 x10^3/uL 01/19/20 04:40 Nucleated RBC % 0.0 /100WBC 01/19/20 04:40 PT 17.4 secs (9.9-12.6) H 01/18/20 04:30 INR 1.6 (0.8-1.2) H 01/18/20 04:30 Whole Blood INR 6.2 (0.8-1.2) H* 01/16/20 08:35 Sodium 138 mmol/L (135-145) 01/19/20 04:40 Potassium 3.3 mmol/L (3.5-5.0) L 01/19/20 04:40 Chloride 110 mmol/L (101-111) 01/19/20 04:40 Carbon Dioxide 24 mmol/L (21-32) 01/19/20 04:40 Anion Gap 4.0 (6-13) L 01/19/20 04:40 BUN 38 mg/dL (6-20) H 01/19/20 04:40 Creatinine 2.1 mg/dL (0.4-1.0) H 01/19/20 04:40 Estimated GFR (MDRD) 23 (>89) L 01/19/20 04:40 Glucose 110 mg/dL (70-100) H 01/19/20 04:40 Lactic Acid 1.4 mmol/L (0.5-2.2) 01/15/20 12:55 Calcium 9.4 mg/dL (8.5-10.3) 01/19/20 04:40 Magnesium 1.7 mg/dL (1.7-2.8) 01/19/20 04:40 Iron 19 ug/dL (28-170) L 01/18/20 04:30 Transferrin < 70 mg/dL (192-382) L 01/18/20 04:30 Total Bilirubin 1.2 mg/dL (0.2-1.0) H 01/15/20 12:55 AST 42 IU/L (10-42) 01/15/20 12:55 ALT 21 IU/L (10-60) 01/15/20 12:55 Alkaline Phosphatase 27 IU/L (42-121) L 01/15/20 12:55 Troponin I High Sens 76.8 ng/L (2.3-14.8) H* 01/15/20 16:01 B-Natriuretic Peptide 88 pg/mL (5-100) 01/15/20 12:55 Total Protein 6.6 g/dL (6.7-8.2) L 01/15/20 12:55 Albumin 3.3 g/dL (3.2-5.5) 01/15/20 12:55 Globulin 3.3 g/dL (2.1-4.2) 01/15/20 12:55 Albumin/Globulin Ratio 1.0 (1.0-2.2) 01/15/20 12:55 Lipase 56 U/L (22-51) H 01/15/20 12:55 Vitamin B12 > 7000 pg/mL (180-914) H 01/18/20 04:30 Folate 17.66 ng/mL (5.90 - >24.8) 01/18/20 04:30 Urine Color DARK YELLOW 01/15/20 13:32 Urine Clarity CLOUDY (CLEAR) 01/15/20 13:32 Urine pH 8.0 PH (5.0-7.5) H 01/15/20 13:32 Ur Specific [place] 1.020 (1.002-1.030) 01/15/20 13:32 Urine Protein 100 mg/dL (NEGATIVE) H 01/15/20 13:32 Urine Glucose (UA) NEGATIVE mg/dL (NEGATIVE) 01/15/20 13:32 Urine Ketones TRACE mg/dL (NEGATIVE) 01/15/20 13:32 Urine Occult Blood SMALL (NEGATIVE) H 01/15/20 13:32 Urine Nitrite NEGATIVE (NEGATIVE) 01/15/20 13:32 Urine Bilirubin NEGATIVE (NEGATIVE) 01/15/20 13:32 Urine Urobilinogen 0.2 (NORMAL) E.U./dL (NORMAL) 01/15/20 13:32 Ur Leukocyte Esterase LARGE (NEGATIVE) H 01/15/20 13:32 Urine RBC 11-25 /HPF (0-5) H 01/15/20 13:32 Urine WBC >25 /HPF (0-5) H 01/15/20 13:32 Ur Epithelial Cells FEW Renal Tubular /HPF (<= Few) 01/15/20 13:32 Ur Squamous Epith Cells RARE Squamous (<= Few) 01/15/20 13:32 Urine Crystals 3-5 Triple Phosphate /LPF 01/15/20 13:32 Urine Bacteria Moderate /HPF (None Seen) H 01/15/20 13:32 Ur Microscopic Review INDICATED 01/15/20 13:32 Urine Culture Comments INDICATED 01/15/20 13:32 Urine Creatinine 32.3 mg/dL 01/18/20 10:52 Urine Potassium 18.0 mmol/L 01/18/20 19:45 Coronavirus (PCR) NEGATIVE 01/15/20 13:17
--- NOTE | 2020-01-19 19:38 | XRAY Report ---
Reason: NGT placement Procedure Date: 01/19/2020 Accession Number: [id number] / [id number] Procedure: XR - Chest for Line Placement CPT Code: Final Report FULL RESULT: EXAM: CHEST RADIOGRAPHY EXAM DATE: 01/19/2020 06:33 PM. CLINICAL HISTORY: NGT placement. COMPARISON: CHEST FOR LINE PLACEMENT 01/16/2020 11:13 AM. TECHNIQUE: 1 view. FINDINGS: Lungs/Pleura: Persistent opacity seen at the lung bases, in addition to peribronchial cuffing. Small bilateral effusions are likely present. Mediastinum: Within exam limitations, the cardiomediastinal contour is normal. Post sternotomy changes are noted. Other: Enteric tube terminates in the stomach. IMPRESSION: 1. Enteric tube terminates in the stomach. 2. Persistent opacities at the lung bases and peribronchial cuffing. Likely developing small bilateral effusions. RADIA
[2020-01-19] MEDS: FAMOTIDINE 20 MG/2 ML SYRINGE IVP SCH (21:26)
[2020-01-19] MEDS: SODIUM CHLORIDE FLUSH 0.9% 10 ML SYRINGE IVP PRN (21:26)
[2020-01-20 06:24] LABS: CALCIUM 9.5 mg/dL (8.5-10.3); CREATININE 2.2 mg/dL (0.4-1.0); MAGNESIUM 1.5 mg/dL (1.7-2.8)
[2020-01-20 06:25] LABS: BASOPHILS % (AUTO) 0.4 %; EOSINOPHILS # (AUTO) 0.2 10^3/uL (0.0-0.7); HGB - HEMOGLOBIN 8.5 g/dL (12.0-16.0); LYMPHOCYTES # (AUTO) 2.1 10^3/uL (1.5-3.5); LYMPHOCYTES % (AUTO) 22.5 %; MEAN CORPUSCULAR HEMOGLOBIN 28.5 pg (27.0-31.0); MEAN CORPUSCULAR HGB CONC 31.5 g/dL (32.0-36.0); MEAN CORPUSCULAR VOLUME 90.6 fL (81.0-99.0); MEAN PLATELET VOLUME 10.5 fL (7.9-10.8); MONOCYTES # (AUTO) 0.9 10^3/uL (0.0-1.0); MONOCYTES % (AUTO) 9.1 %; NEUTROPHILS # (AUTO) 6.2 10^3/uL (1.5-6.6); NEUTROPHILS % (AUTO) 65.6 %; PLT - PLATELET COUNT 173 10^3/uL (130-450); RED BLOOD COUNT 2.98 10^6/uL (4.20-5.40); RED CELL DISTRIBUTION WIDTH 16.2 % (12.0-15.0); WHITE BLOOD COUNT 9.4 x10^3/uL (4.8-10.8)
[2020-01-20] MEDS: SODIUM CHLORIDE FLUSH 0.9% 10 ML SYRINGE IVP SCH ×3 (07:04→16:40)
[2020-01-20] MEDS: ENOXAPARIN 60 MG/0.6 ML SYRINGE SUBQ SCH (08:24)
[2020-01-20] MEDS: cefTRIAXone 1 GM in SODIUM CHLORIDE 0.9% MINIBAG 100 ML IV SCH (08:24)
--- NOTE | 2020-01-20 08:35 | PROVIDER PROGRESS NOTE ---
Assessment/Plan - Problem List (1) Pleural effusion Assessment/Plan: Related to volume overload from iv hydration. Since she is not eating or drinking, ng feeds were started yesterday. Will decrease peripheral iv to TKO, but not give Lasix, since she is not in resp distress. (2) Altered mental status Qualifiers: Qualified Code(s): R40.2422 - [place] coma scale score 9-12, at arrival to emergency department Assessment/Plan: She has now had a day of successful enteral nutrition via NG tube, this has not improved her severe weakness. She is still lethargic, obtunded, mouth breathes, only opens her eyes to her name or when she sees her son. He has not visited her in 2 days. Since we have tried maximal medical management, will request a Palliative Care consult tomorrow (today is Tuesday), to reach out to the son Crispin, to help e xplain her situation which is not improving. (3) UTI (urinary tract infection) Qualifiers: Urinary tract infection type: site unspecified Hematuria presence: without hematuria Qualified Code(s): N39.0 - Urinary tract infection, site not specified Assessment/Plan: Since she cannot swallow, she remains on IV ceftriaxone treatment. Her white blood count is improving. She has had negative blood cultures to date. A seven day course of treatment is planned, this would be finished in about 2 more day. (4) Proteus mirabilis infection Assessment/Plan: As above in #2 (5) Acute kidney injury superimposed on chronic kidney disease Assessment/Plan: She has had daily improvement in her BUN over creatinine since admission with gentle hydration throughout this time. Follow BMP daily. (7) Hypokalemia Assessment/Plan: Improving daily but still needs replacement. Follow BMP day (8) Warfarin not tolerated Assessment/Plan: As per the description from the son (9) Anemia Assessment/Plan: Later to hemodilution and low iron. (10) Cerebrovascular accident, old Assessment/Plan: As per CT head at admission (11) Dementia Assessment/Plan: As per records from the [facility]. (12) Dehydration Assessment/Plan: She has no more sunken eyes or tenting of the skin but has persistent very dry oral mucosa, she is a mouth breather. Continue with low-level IV hydration and continue with the new NG feeds for hydration (13) Hypernatremia Assessment/Plan: Resolved (14) Elevated INR Assessment/Plan: Resolved. She is on Lovenox for bridging in case Coumadin or any oral agent are restarted, which is not likely since she cannot swallow. - Current Meds Current Meds: Current Medications Generic Name Dose Route Start Last Admin Trade Name Freq PRN Reason Stop Dose Admin Enoxaparin Sodium 50 mg 01/18/20 10:00 01/20/20 08:24 Lovenox SUBQ 50 mg DAILY MARIA DEL CARMEN Administration Famotidine 20 mg 01/15/20 21:00 01/19/20 21:26 Pepcid IVP 20 mg QPM MARIA DEL CARMEN Administration Ceftriaxone Sodium 1 gm/ 100 mls @ 200 mls/hr 01/16/20 09:00 01/20/20 08:24 Sodium Chloride IV 200 mls/hr DAILY MARIA DEL CARMEN Administration Potassium Chloride/Dextrose/Sod Cl 1,000 mls @ 83.333 mls/hr 01/18/20 10:00 01/19/20 21:26 D5.45ns W/20 Meq Kcl IV 83.33 mls/hr .Q12H MARIA DEL CARMEN Administration Mineral Oil 1 applic 01/15/20 16:36 01/18/20 20:05 Cavilon TOP 1 applic PRN PRN Administration Skin Care Sodium Chloride 10 ml 01/15/20 14:22 01/19/20 21:26 Normal Saline Flush 0.9% IVP 10 ml PRN PRN Administration NEEDED PER PROVIDER ORDERS Sodium Chloride 10 ml 01/15/20 17:00 01/20/20 08:26 Normal Saline Flush 0.9% IVP 10 ml 0100,0900,1700 MARIA DEL CARMEN Administration - Lab Result Fish Bone Diagrams: 01/20/20 05:55 01/20/20 05:55 - Additional Planning My Orders: My Active Orders 01/19/20 14:44 Tube Feeding [RC] QSHIFT 01/19/20 14:46 Miscellaenous Nursing Order [RC] QSHIFT Turn and Reposition [RC] prn Subjective - Subjective Patient Reports: Other (She is unchanged over the past 3 days, obtunded, awakens by opening her eyes when hears her name, answers with one-word answers, follows with her eyes when her son is at bedside.) Objective Vital Signs: Vital Signs - 24 hr 01/19/20 01/19/20 01/19/20 13:20 16:20 19:28 Temperature 36.2 C L 36.2 C L Heart Rate [ 81 Monitoring electrodes] Heart Rate [ 80 82 Radial] Respiratory 20 17 16 Rate Blood Pressure 103/72 123/67 129/93 H [Right Brachial artery] Blood Pressure [Right Radial artery] O2 Saturation 100 100 100 01/19/20 01/20/20 01/20/20 23:45 04:10 08:18 Temperature 36.6 C 36.6 C 36.8 C Heart Rate [ Monitoring electrodes] Heart Rate [ 90 95 94 Radial] Respiratory 16 16 20 Rate Blood Pressure 103/59 L [Right Brachial artery] Blood Pressure 127/55 L 130/60 [Right Radial artery] O2 Saturation 98 97 96 Oxygen O2 Source Room air I&O (Last 24 Hrs): Intake and Output Totals x24h 01/18/20 01/19/20 01/20/20 23:59 23:59 23:59 Intake Total 3124.42 2486.866 430 Output Total 1500 825 350 Balance 1624.42 1661.866 80 General: Other (Lethargic) HEENT: Other (Dry oral mucosa, she is a mouth breather. No more skin tenting or sunken eyes) Neck: Supple Neuro: Other (Lethargic, has significant generalized weakness, Moves all 4 extremities spontaneously but minimally) Cardiovascular: Regular rate, No murmurs Respiratory: No respiratory distress, Breath sounds nml Abdomen: Soft Extremities: No edema - Results Results: Laboratory Results WBC 9.4 x10^3/uL (4.8-10.8) 01/20/20 05:55 RBC 2.98 10^6/uL (4.20-5.40) L 01/20/20 05:55 Hgb 8.5 g/dL (12.0-16.0) L 01/20/20 05:55 Hct 27.0 % (37.0-47.0) L 01/20/20 05:55 MCV 90.6 fL (81.0-99.0) 01/20/20 05:55 MCH 28.5 pg (27.0-31.0) 01/20/20 05:55 MCHC 31.5 g/dL (32.0-36.0) L 01/20/20 05:55 RDW 16.2 % (12.0-15.0) H 01/20/20 05:55 Plt Count 173 10^3/uL (130-450) 01/20/20 05:55 MPV 10.5 fL (7.9-10.8) 01/20/20 05:55 Neut # (Auto) 6.2 10^3/uL (1.5-6.6) 01/20/20 05:55 Lymph # (Auto) 2.1 10^3/uL (1.5-3.5) 01/20/20 05:55 [place] # (Auto) 0.9 10^3/uL (0.0-1.0) 01/20/20 05:55 Eos # (Auto) 0.2 10^3/uL (0.0-0.7) 01/20/20 05:55 Baso # (Auto) 0.0 10^3/uL (0.0-0.1) 01/20/20 05:55 Absolute Nucleated RBC 0.00 x10^3/uL 01/20/20 05:55 Nucleated RBC % 0.0 /100WBC 01/20/20 05:55 PT 17.4 secs (9.9-12.6) H 01/18/20 04:30 INR 1.6 (0.8-1.2) H 01/18/20 04:30 Whole Blood INR 6.2 (0.8-1.2) H* 01/16/20 08:35 Sodium 134 mmol/L (135-145) L 01/20/20 05:55 Potassium 4.1 mmol/L (3.5-5.0) 01/20/20 05:55 Chloride 108 mmol/L (101-111) 01/20/20 05:55 Carbon Dioxide 20 mmol/L (21-32) L 01/20/20 05:55 Anion Gap 6.0 (6-13) 01/20/20 05:55 BUN 30 mg/dL (6-20) H 01/20/20 05:55 Creatinine 2.2 mg/dL (0.4-1.0) H 01/20/20 05:55 Estimated GFR (MDRD) 21 (>89) L 01/20/20 05:55 Glucose 118 mg/dL (70-100) H 01/20/20 05:55 Lactic Acid 1.4 mmol/L (0.5-2.2) 01/15/20 12:55 Calcium 9.5 mg/dL (8.5-10.3) 01/20/20 05:55 Magnesium 1.5 mg/dL (1.7-2.8) L 01/20/20 05:55 Iron 19 ug/dL (28-170) L 01/18/20 04:30 Transferrin < 70 mg/dL (192-382) L 01/18/20 04:30 Total Bilirubin 1.2 mg/dL (0.2-1.0) H 01/15/20 12:55 AST 42 IU/L (10-42) 01/15/20 12:55 ALT 21 IU/L (10-60) 01/15/20 12:55 Alkaline Phosphatase 27 IU/L (42-121) L 01/15/20 12:55 Troponin I High Sens 76.8 ng/L (2.3-14.8) H* 01/15/20 16:01 B-Natriuretic Peptide 88 pg/mL (5-100) 01/15/20 12:55 Total Protein 6.6 g/dL (6.7-8.2) L 01/15/20 12:55 Albumin 3.3 g/dL (3.2-5.5) 01/15/20 12:55 Globulin 3.3 g/dL (2.1-4.2) 01/15/20 12:55 Albumin/Globulin Ratio 1.0 (1.0-2.2) 01/15/20 12:55 Lipase 56 U/L (22-51) H 01/15/20 12:55 Vitamin B12 > 7000 pg/mL (180-914) H 01/18/20 04:30 Folate 17.66 ng/mL (5.90 - >24.8) 01/18/20 04:30 Urine Color DARK YELLOW 01/15/20 13:32 Urine Clarity CLOUDY (CLEAR) 01/15/20 13:32 Urine pH 8.0 PH (5.0-7.5) H 01/15/20 13:32 Ur Specific [place] 1.020 (1.002-1.030) 01/15/20 13:32 Urine Protein 100 mg/dL (NEGATIVE) H 01/15/20 13:32 Urine Glucose (UA) NEGATIVE mg/dL (NEGATIVE) 01/15/20 13:32 Urine Ketones TRACE mg/dL (NEGATIVE) 01/15/20 13:32 Urine Occult Blood SMALL (NEGATIVE) H 01/15/20 13:32 Urine Nitrite NEGATIVE (NEGATIVE) 01/15/20 13:32 Urine Bilirubin NEGATIVE (NEGATIVE) 01/15/20 13:32 Urine Urobilinogen 0.2 (NORMAL) E.U./dL (NORMAL) 01/15/20 13:32 Ur Leukocyte Esterase LARGE (NEGATIVE) H 01/15/20 13:32 Urine RBC 11-25 /HPF (0-5) H 01/15/20 13:32 Urine WBC >25 /HPF (0-5) H 01/15/20 13:32 Ur Epithelial Cells FEW Renal Tubular /HPF (<= Few) 01/15/20 13:32 Ur Squamous Epith Cells RARE Squamous (<= Few) 01/15/20 13:32 Urine Crystals 3-5 Triple Phosphate /LPF 01/15/20 13:32 Urine Bacteria Moderate /HPF (None Seen) H 01/15/20 13:32 Ur Microscopic Review INDICATED 01/15/20 13:32 Urine Culture Comments INDICATED 01/15/20 13:32 Urine Creatinine 32.3 mg/dL 01/18/20 10:52 Urine Potassium 18.0 mmol/L 01/18/20 19:45 Coronavirus (PCR) NEGATIVE 01/15/20 13:17
[2020-01-20] MEDS: DEXTROSE 5%-0.9% NACL 1,000 ML IV SCH (14:36)
[2020-01-20] MEDS: SODIUM CHLORIDE FLUSH 0.9% 10 ML SYRINGE IVP PRN (21:30)
[2020-01-20] MEDS: FAMOTIDINE 20 MG/2 ML SYRINGE IVP SCH (21:30)
[2020-01-21] MEDS: SODIUM CHLORIDE FLUSH 0.9% 10 ML SYRINGE IVP SCH ×3 (00:34→15:57)
[2020-01-21] MEDS: cefTRIAXone 1 GM in SODIUM CHLORIDE 0.9% MINIBAG 100 ML IV SCH (08:25)
[2020-01-21] MEDS: ENOXAPARIN 60 MG/0.6 ML SYRINGE SUBQ SCH (08:28)
--- NOTE | 2020-01-21 15:03 | CONSULTATION NOTE ---
Palliative Care Consultation - Referral Referring Provider: Dr. Angie Reyes Time of Visit: [id number] Referral setting: Hospitalized patient Referral Reason: FTT/UTI/Goals of Care - Information Sources Records reviewed: Previous records reviewed History/Review of Systems obtained from: Family (spoke with Al on phone), Nursing Exam limitations: Clinical condition (patient unable to respond verbally;) - History of Present Illness Brief History of Present Illness: This is an 79-year-old woman who actually comes from [place], she had been the caregiver for her who in November. And follow-up with home health nurse, who has been seeing her for several months, reports patient was originally a good historian, was placed at [facility] to provide support and care, but has been deteriorating both functionally and cognitively over the last several months, and more acutely over the last several weeks particularly in the context of the COVID-19 restrictions in assisted living. 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 She was managed medically, and eventually had a PEG tube. She had a complicated course with pneumonia, atelectasis, pleural effusions, C. difficile, dysphagia malnutrition, ADWOA, anemia, metabolic encephalopathy, delirium, and sustained a mechanical fall. She was not discharged until 07/11/2019. She was then [facility] till 08/14/2019, and though she was not really eating enough, they had had the PEG tube out. She was having more difficulty with eating, keeping her calories up, she had a significant amount of weight loss, originally was 143 in March. Today she is 117, but does look to have fluid retention and some anasarca, where she weighed in 106 at the assisted living. Patient currently though being treated for UTI, has not improved, she has only spoken a few words, she is very fearful with any kind of turning or movement. Her son did agree to placing of an NG tube related to not being able to meet her caloric needs. He had seen her in a couple days back to back, and has seen that she is doing poorly. He is quite frustrated with the outcome of her care for [facility], though her mother is the one who chose to go there to be near her sister, she has not been willing or able to participate much in therapy. Is unclear what her underlying etiology and decline is related to, though she did have a fairly acute and serious event last year. She has not recovered to her previous level of functioning, and has continued decline both functionally and cognitively. Medical/Surgical History - Past Medical History Cardiovascular: reports: Coronary artery disease, Pulmonary embolism (has hypercoagulation defect with PE in past; has been on anticoag for "55 years") Neuro: Tremors, Other (forgetfulness per family; unclear dementia dx) GI: reports: C.difficile, Diverticulitis : reports: Incontinence HEENT: reports: Chronic vision loss, Other (detached retina; vitreous hemmorrhage in eye) Psych: reports: Depression, Anxiety Musculoskeletal: reports: Osteoarthritis Other Past Medical History: 03/2019 acute appendicitis with perforation/enterocutaneous fistula and peritonitis. Too unstable for surgery, was managed with drains, antibiotics, and PEG tube. She had complicated course with pneumonia, C. difficile, dyspnea foggy/malnutrition, ADWOA, anemia, metabolic encephalopathy and delirium and mechanical fall - Past Surgical History General: reports: Other (sigmoid colectomy) Cardiovascular: reports: CABG Social History - Living Situation Living arrangement: Assisted living Support System: Patient's sister has been a support to her at the assisted living, unfortunately with COVID-19, much more limited access to patient's other than healthcare providers. My understanding from the visiting nurse, she "went south". In review with her son, does not appear he has been in contact with the sister, he reports he does have D POA, her history reports she does have 2 sons. He is not been able to get much information, it has been quite frustrating for him as far as follow-up for [place], and it was made more difficult by the COVID-19 restrictions. Family History - Family History Family History: Mother: , Father: , Sister: Alive and Well Medications/Allergies - Medications Active Medication List: Active Medications Enoxaparin Sodium (Lovenox) 50 mg SUBQ DAILY MARIA DEL CARMEN Last Admin: 01/21/20 08:28 Dose: 50 mg Famotidine (Pepcid) 20 mg IVP QPM MARIA DEL CARMEN Last Admin: 01/20/20 21:30 Dose: 20 mg Ceftriaxone Sodium 1 gm/ (Sodium Chloride) 100 mls @ 200 mls/hr IV DAILY MARIA DEL CARMEN Last Infusion: 01/21/20 09:32 Dose: Infused Acetaminophen (Ofirmev) 100 mls @ 400 mls/hr IV Q6HR PRN PRN Reason: Pain or Fever > 38C (100.4F) Dextrose/Sodium Chloride (D5ns) 1,000 mls @ 40 mls/hr IV .Q25H [facility] Last Admin: 01/20/20 14:36 Dose: 40 mls/hr Mineral Oil (Cavilon) 1 applic TOP PRN PRN PRN Reason: Skin Care Last Admin: 01/18/20 20:05 Dose: 1 applic Ondansetron HCl (Zofran Inj) 4 mg IVP Q6HR PRN PRN Reason: Nausea / Vomiting Sodium Chloride (Normal Saline Flush 0.9%) 10 ml IVP PRN PRN PRN Reason: NEEDED PER PROVIDER ORDERS Last Admin: 01/20/20 21:30 Dose: 10 ml Sodium Chloride (Normal Saline Flush 0.9%) 10 ml IVP 0100,0900,1700 [facility] Last Admin: 01/21/20 08:28 Dose: 10 ml Sodium Chloride (Normal Saline Flush 0.9%) 20 ml IVP PRN PRN PRN Reason: After Blood Draw Cholecalciferol [Vitamin D3] 10,000 unit PO DAILY 01/15/20 Cyanocobalamin [Vitamin B-12] 1,000 mcg IM MO 01/15/20 Escitalopram Oxalate 20 mg PO DAILY 01/15/20 Fluticasone [Flonase] 2 sprays MAURICE BID 01/15/20 Glutamine [Endari] 10 ml PO BID 01/15/20 Lansoprazole [Prevacid] 15 mg PO DAILY 01/15/20 Metoclopramide [Reglan] 10 mg PO AC 01/15/20 Ondansetron Odt [Zofran Odt] 4 mg TL Q4H PRN 01/15/20 Saccharomyces Boulardii [Florastor] 250 mg PO BID 01/15/20 Vitamin B Complex 1 each PO DAILY 01/15/20 Warfarin Sodium [Coumadin] 3 mg PO DAILY 01/15/20 - Allergies Allergies/Adverse Reactions: Allergies Allergy/AdvReac Type Severity Reaction Status Date / Time alendronate sodium Allergy Unknown Verified 01/15/20 12:14 [From Fosamax] codeine Allergy Unknown Verified 01/15/20 12:14 fentanyl Allergy Unknown Verified 01/15/20 12:14 ibandronate sodium Allergy Unknown Verified 01/15/20 12:14 risedronate sodium Allergy Unknown Verified 01/15/20 12:14 [From Actonel] Sulfa (Sulfonamide Allergy Unknown Verified 01/15/20 12:14 Antibiotics) Review of Systems - Constitutional Constitutional: reports: Fatigue, Weight loss - Eyes Eyes: reports: Vision loss - Ears, Nose & Throat Ears, Nose & Throat: reports: Dry mouth - Gastrointestinal Gastrointestinal: reports: Diarrhea (oozing soft stool with initiation of TF). denies: Vomiting - Genitourinary Genitourinary: reports: Other (ruano catheter) - Musculoskeletal Musculoskeletal: reports: Muscle weakness, Other (currently bedbound) - Integumentary Integumentary: reports: Dryness, Other (bruising) - Neurological Neurological: reports: General weakness, Other (few words only) - Endocrine Endocrine: reports: Intolerance to cold - Hematologic/Lymphatic Hematologic/Lymphatic: reports: Anemia, Bruising - All Other Systems All Other Systems: reports: Other (ROS limited) Physical Exam - Vital Signs Vital Signs: Vital Signs x48h Temp Pulse Resp BP Pulse Ox 01/21/20 12:02 36.9 C 75 16 125/60 99 01/21/20 08:14 36.6 C 68 128/62 18 L - Physical Exam General Appearance: positive: Mild distress, Lethargic, Cachetic Eyes Bilateral: positive: Other (reddened conjuctivae; eyes mostly closed; flutters awake with turning) ENT: positive: Dry mucous membranes Neck: positive: Trachea midline Cardiovascular: positive: Regular rate & rhythm Respiratory: positive: Diminished throughout. negative: Wheezes, Rales, Rhonchi Abdomen: positive: Soft, Nml bowel sounds, Tenderness (mild grimacing with palpation). negative: Guarding, Mass Skin: positive: Pallor, Dryness, Bruising, Other (mepelix on right shoulder) Extremities: positive: Other (swelling in thighs and sacral area/some in arms) Neurologic/Psychiatric: positive: Weakness, Flat affect, Other (min. verbalization) Palliative Care - POLST Patient has POLST: No POLST Status: DNR Pain: Comment (patient demonstrates anxiety/pain behaviors with turning; grimac ing with repositioning) Anorexia: Weight loss (currently with NG tube feeding 40 ml/hr) Performance Status: According to records, patient has been declining functionally over time, now is bedbound. Concern patient most likely was unable to feed or assist herself with nutritional intake. - Palliative Care Discussion: Patient unable to participate in any kind of conversation regarding wishes or goals of care. No documentation of which is on file. Al her son, was able to call me back and we had a conversation regarding his perception and goals for his mother. His understanding of his mother's current condition, is that she would have been expected to recover to a more alert state, and and less time if she were going to make a turnaround. He did understand she had been losing weight, and was unclear exactly what the goals are things that were happening at [facility] to help with that. He reports his mother wanted to go to [facility], to be close to the sister. Says is been more difficult with the COVID-19, to get information or to come to some sense of understanding what was happening there. The original goal had been for her to be at [facility] just for a couple months, and return home to her home in [place] with assistance. She has been there over 5 months, and has been dealing with her decline in health over 8 months overall. He had seen her, 2 days in a row, had responded a little bit the first time but not the next day. When asked what his mother would want, he is unclear but would like to take her home. He had been making arrangements tentatively to transition her home with caregiving anyway, this was not exactly though how he had perceived it. We discussed the decisions coming his way, currently she has an NG tube, it would be whether to place a PEG. We did discuss given her decline, and most likely outcome would be only to prolong her suffering, as we do not expect her to recover to her previous level of functioning, he did understand that this would most not likely make any sense to do at this point in time. We discussed transitioning to hospice, and comfort care. That this would include withdrawing the tube feeding, comfort feeds only, focusing on giving her medications to relieve her suffering, and allowing natural . We discussed there are several placement options regarding this, though none would be paid for by the hospice benefit. He could return her to [facility], but with increased caregiving support, he could take her home and transition her to hospice care, he actually has someone he is working with regarding hiring a caregiver and he had been poised to return her to her home, he will follow-up if she would be comfortable providing hands-on care for end-of-life. This would be his preference, to have her at home. We also discussed that this did not work out as far as caregiving, she could be placed in a SNF but it would be private pay with the goal again hospice providing support for comfort. The decision at this point in time is not to proceed with a PEG, will continue NG for now, he would like some time to see if this caregivers available, but does understand discharge would be in the next 2 to 3 days. If she would return to [place] she would need transport, will defer this to [facility] [place] [place]. If she needs plac ement in a SNF, will need to work with son on preferences. Results - Lab Results Lab results reviewed: Yes Melquiades Bones: 01/20/20 05:55 01/20/20 05:55 Impression and Recommendations - Palliative Care Impression: This is an 79-year-old woman who presents with failure to thrive, who has had both functional and cognitive decline, now acutely presents as nonverbal, cachectic, and lethargic. She is currently receiving medically assisted nu trition, and antibiotics for support. Palliative care asked to consult regarding goals of care. Recommendations/Counseling Done: 1. Failure to thrive. Patient presents acutely with dehydration, attended, and febrile, AK I on CKD and evidence of UTI. She has not responded well to fluids, antibiotics, nor with initiation of tube feedings. Patient has history of functional and cognitive decline, as well as significant weight loss of at least 10 to 15 pounds. She has had increased dysphagia and needed thickened liquids. Unfortunately she was in assisted living, with more difficulty initiating her own self-care and managing ADLs. Counseling provided to son, regarding most likely scenario, patient continuing to decline, most likely would not return to previous level of functioning, and at this point is mostly nonresponsive.At this point in time the feeding is supporting her at some level, but decision regarding PEG tube is pending, as well as deciding on goals of care. 2. Advanced care planning. Counseling provided to son regarding options to continue as is, though concern patient most likely is not going to return to any level of functioning that would translate in the context of quality of life. Counseling provided regarding option to transition to comfort care and discharged with hospice. Reviewed options of placement, returning home, and limitations as well as benefits of hospice Medicare benefit. 3. Acute on chronic pain. Would recommend [id number] dosing of the Ofermiv, currently available, nursing can give for s/s of pain. Patient demonstrates pain behaviors with any kind of moving or repositioning, as well as anxiety. Time Spent: 85 minutes with greater than 50% of this done in counseling regarding goals of care, family/son exploration and education regarding current patient status, coordination of care with hospitalist and clinical team.
[2020-01-21] MEDS: DEXTROSE 5%-0.9% NACL 1,000 ML IV SCH (15:57)
[2020-01-21] MEDS: SODIUM CHLORIDE FLUSH 0.9% 10 ML SYRINGE IVP PRN ×2 (15:58→20:47)
--- NOTE | 2020-01-21 19:50 | PROVIDER PROGRESS NOTE ---
Assessment/Plan - Problem List (1) Altered mental status Qualifiers: Qualified Code(s): R40.2422 - [place] coma scale score 9-12, at arrival to emergency department Assessment/Plan: She has now had 2 days of enteral nutrition via NG tube, this has not improved her severe weakness. She is still lethargic, obtunded, mouth breathes, only opens her eyes to her name or when she sees her son. He has not visited her in 2 days. Since we have tried maximal medical management, will request a Palliative Care consult today, to reach out to the son Crispin, to help explain her situation which is not improving. (2) UTI (urinary tract infection) Qualifiers: Urinary tract infection type: site unspecified Hematuria presence: without hematuria Qualified Code(s): N39.0 - Urinary tract infection, site not specified Assessment/Plan: Since she cannot swallow, she remains on IV ceftriaxone treatment. Her white blood count is improving. She has had negative blood cultures to date. Edgardo day course of treatment is planned, this would be finished in about 1 more day. (3) Proteus mirabilis infection Assessment/Plan: As above in #2 (4) Acute kidney injury superimposed on chronic kidney disease Assessment/Plan: She has very slowly improving renal function daily since this admission, on her daily labs, and has now plateaued with a creatinine of 2.1-2.2. Continue with current plan with hydration and management. (5) Severe protein-calorie malnutrition Assessment/Plan: The's speech therapist knew her since September from the home health visits to the assisted living facility and the lady already had poor oral intake even when she was more awake, alert, able to communicate, able to take walks. Since this admission, she followed her swallowing eval. Yesterday she did handle an ice chip appropriately without aspirating. NG tube feedings were okay to start by her son Crispin and she has been getting these for 2 days, tolerating her maximum rate for her size. Free water order, in addition, will be added by the RD today (6) Hypokalemia Assessment/Plan: Days the first day of a normal serum potassium level after many days of replacement. (7) Anemia Assessment/Plan: Hemodilution all plus iron deficiency. She did get replacement. The high B12 is related to having gotten monthly IM B12 shots, per the RD information obtained today (8) Cerebrovascular accident, old Assessment/Plan: As per CT scan on admission. I described these findings to the son earlier this hospitalization (9) Dementia Assessment/Plan: As per history (10) Dehydration Assessment/Plan: There is no more skin tenting ting or sunken eyes but she has dry oral mucosa every day because of being a mouth breather. We will add free water to her NG tube feeds (11) Warfarin not tolerated Assessment/Plan: This information is according to the son who made it sound like generic warfarin was somehow not tolerated by her and that she needs tradename Coumadin. (12) Elevated INR Assessment/Plan: She needed a small dose of vitamin K at the early part of admission because of a climbing INR and risk of bleeding in this elderly frail patient. When the INR normalized, she was put on Lovenox as bridging before considering resuming Coumadin. If she will be transitioning to comfort care this will not be needed (13) Hypernatremia Assessment/Plan: Resolved - Current Meds Current Meds: Current Medications Generic Name Dose Route Start Last Admin Trade Name Freq PRN Reason Stop Dose Admin Enoxaparin Sodium 50 mg 01/18/20 10:00 01/21/20 08:28 Lovenox SUBQ 50 mg DAILY MARIA DEL CARMEN Administration Famotidine 20 mg 01/15/20 21:00 01/20/20 21:30 Pepcid IVP 20 mg QPM MARIA DEL CARMEN Administration Ceftriaxone Sodium 1 gm/ 100 mls @ 200 mls/hr 01/16/20 09:00 01/21/20 09:32 Sodium Chloride IV Infused DAILY MAR[facility] DEL CARMEN Infusion Dextrose/Sodium Chloride 1,000 mls @ 40 mls/hr 01/20/20 10:00 01/21/20 15:57 D5ns IV 40 mls/hr .Q25H MARIA DEL CARMEN Administration Mineral Oil 1 applic 01/15/20 16:36 01/18/20 20:05 Cavilon TOP 1 applic PRN PRN Administration Skin Care Sodium Chloride 10 ml 01/15/20 14:22 01/21/20 15:58 Normal Saline Flush 0.9% IVP 10 ml PRN PRN Administration NEEDED PER PROVIDER ORDERS Sodium Chloride 10 ml 01/15/20 17:00 01/21/20 15:57 Normal Saline Flush 0.9% IVP 10 ml 0100,0900,1700 MARIA DEL CARMEN Administration - Lab Result Fish Bone Diagrams: 01/20/20 05:55 01/20/20 05:55 - Additional Planning My Orders: My Active Orders 01/21/20 Consult [Palliative Care Consult] [CONS] Routine Subjective - Subjective Patient Reports: Other (Sleeping with mouth open, opens eyes to name, no communication today.) Objective Vital Signs: Vital Signs - 24 hr 01/20/20 01/20/20 01/21/20 19:54 23:50 04:15 Temperature 36.6 C 36.7 C 36.5 C Heart Rate [ 97 84 77 Brachial] Respiratory 16 16 16 Rate Blood Pressure 126/65 [Right Ankle] Blood Pressure 136/69 H [Right Brachial artery] Blood Pressure 102/60 [Right Radial artery] O2 Saturation 98 99 99 01/21/20 01/21/20 01/21/20 08:14 12:02 16:21 Temperature 36.6 C 36.9 C 36.5 C Heart Rate [ 68 75 72 Brachial] Respiratory 16 15 Rate Blood Pressure [Right Ankle] Blood Pressure 150/78 H [Right Brachial artery] Blood Pressure 128/62 125/60 [Right Radial artery] O2 Saturation 18 L 99 99 Oxygen O2 Source Room air I&O (Last 24 Hrs): Intake and Output Totals x24h 01/19/20 01/20/20 01/21/20 23:59 23:59 23:59 Intake Total 2486.866 2311 1907.000 Output Total 825 1205 790 Balance 6613.100 7913 1117.000 General: Other (Obtunded, unchanged since yesterday) HEENT: Other (Dry oral mucosa, is a mouth breather) Neck: Supple Neuro: Non Focal, Other (Lethargic and weak.) Cardiovascular: Regular rate, No murmurs Respiratory: No respiratory distress Abdomen: Soft Extremities: No edema - Results Results: Laboratory Results WBC 9.4 x10^3/uL (4.8-10.8) 01/20/20 05:55 RBC 2.98 10^6/uL (4.20-5.40) L 01/20/20 05:55 Hgb 8.5 g/dL (12.0-16.0) L 01/20/20 05:55 Hct 27.0 % (37.0-47.0) L 01/20/20 05:55 MCV 90.6 fL (81.0-99.0) 01/20/20 05:55 MCH 28.5 pg (27.0-31.0) 01/20/20 05:55 MCHC 31.5 g/dL (32.0-36.0) L 01/20/20 05:55 RDW 16.2 % (12.0-15.0) H 01/20/20 05:55 Plt Count 173 10^3/uL (130-450) 01/20/20 05:55 MPV 10.5 fL (7.9-10.8) 01/20/20 05:55 Neut # (Auto) 6.2 10^3/uL (1.5-6.6) 01/20/20 05:55 Lymph # (Auto) 2.1 10^3/uL (1.5-3.5) 01/20/20 05:55 [place] # (Auto) 0.9 10^3/uL (0.0-1.0) 01/20/20 05:55 Eos # (Auto) 0.2 10^3/uL (0.0-0.7) 01/20/20 05:55 Baso # (Auto) 0.0 10^3/uL (0.0-0.1) 01/20/20 05:55 Absolute Nucleated RBC 0.00 x10^3/uL 01/20/20 05:55 Nucleated RBC % 0.0 /100WBC 01/20/20 05:55 PT 17.4 secs (9.9-12.6) H 01/18/20 04:30 INR 1.6 (0.8-1.2) H 01/18/20 04:30 Whole Blood INR 6.2 (0.8-1.2) H* 01/16/20 08:35 Sodium 134 mmol/L (135-145) L 01/20/20 05:55 Potassium 4.1 mmol/L (3.5-5.0) 01/20/20 05:55 Chloride 108 mmol/L (101-111) 01/20/20 05:55 Carbon Dioxide 20 mmol/L (21-32) L 01/20/20 05:55 Anion Gap 6.0 (6-13) 01/20/20 05:55 BUN 30 mg/dL (6-20) H 01/20/20 05:55 Creatinine 2.2 mg/dL (0.4-1.0) H 01/20/20 05:55 Estimated GFR (MDRD) 21 (>89) L 01/20/20 05:55 Glucose 118 mg/dL (70-100) H 01/20/20 05:55 Lactic Acid 1.4 mmol/L (0.5-2.2) 01/15/20 12:55 Calcium 9.5 mg/dL (8.5-10.3) 01/20/20 05:55 Magnesium 1.5 mg/dL (1.7-2.8) L 01/20/20 05:55 Iron 19 ug/dL (28-170) L 01/18/20 04:30 Transferrin < 70 mg/dL (192-382) L 01/18/20 04:30 Total Bilirubin 1.2 mg/dL (0.2-1.0) H 01/15/20 12:55 AST 42 IU/L (10-42) 01/15/20 12:55 ALT 21 IU/L (10-60) 01/15/20 12:55 Alkaline Phosphatase 27 IU/L (42-121) L 01/15/20 12:55 Troponin I High Sens 76.8 ng/L (2.3-14.8) H* 01/15/20 16:01 B-Natriuretic Peptide 88 pg/mL (5-100) 01/15/20 12:55 Total Protein 6.6 g/dL (6.7-8.2) L 01/15/20 12:55 Albumin 3.3 g/dL (3.2-5.5) 01/15/20 12:55 Globulin 3.3 g/dL (2.1-4.2) 01/15/20 12:55 Albumin/Globulin Ratio 1.0 (1.0-2.2) 01/15/20 12:55 Lipase 56 U/L (22-51) H 01/15/20 12:55 Vitamin B12 > 7000 pg/mL (180-914) H 01/18/20 04:30 Folate 17.66 ng/mL (5.90 - >24.8) 01/18/20 04:30 Urine Color DARK YELLOW 01/15/20 13:32 Urine Clarity CLOUDY (CLEAR) 01/15/20 13:32 Urine pH 8.0 PH (5.0-7.5) H 01/15/20 13:32 Ur Specific [place] 1.020 (1.002-1.030) 01/15/20 13:32 Urine Protein 100 mg/dL (NEGATIVE) H 01/15/20 13:32 Urine Glucose (UA) NEGATIVE mg/dL (NEGATIVE) 01/15/20 13:32 Urine Ketones TRACE mg/dL (NEGATIVE) 01/15/20 13:32 Urine Occult Blood SMALL (NEGATIVE) H 01/15/20 13:32 Urine Nitrite NEGATIVE (NEGATIVE) 01/15/20 13:32 Urine Bilirubin NEGATIVE (NEGATIVE) 01/15/20 13:32 Urine Urobilinogen 0.2 (NORMAL) E.U./dL (NORMAL) 01/15/20 13:32 Ur Leukocyte Esterase LARGE (NEGATIVE) H 01/15/20 13:32 Urine RBC 11-25 /HPF (0-5) H 01/15/20 13:32 Urine WBC >25 /HPF (0-5) H 01/15/20 13:32 Ur Epithelial Cells FEW Renal Tubular /HPF (<= Few) 01/15/20 13:32 Ur Squamous Epith Cells RARE Squamous (<= Few) 01/15/20 13:32 Urine Crystals 3-5 Triple Phosphate /LPF 01/15/20 13:32 Urine Bacteria Moderate /HPF (None Seen) H 01/15/20 13:32 Ur Microscopic Review INDICATED 01/15/20 13:32 Urine Culture Comments INDICATED 01/15/20 13:32 Urine Creatinine 32.3 mg/dL 01/18/20 10:52 Urine Potassium 18.0 mmol/L 01/18/20 19:45 Coronavirus (PCR) NEGATIVE 01/15/20 13:17
[2020-01-21] MEDS: FAMOTIDINE 20 MG/2 ML SYRINGE IVP SCH (20:47)
[2020-01-21] MEDS: MIN OIL/DIMETHICON/COCONUT OIL 92 GM TUBE TOP PRN (20:54)
[2020-01-22] MEDS: SODIUM CHLORIDE FLUSH 0.9% 10 ML SYRINGE IVP SCH ×3 (03:52→17:54)
[2020-01-22] MEDS: cefTRIAXone 1 GM in SODIUM CHLORIDE 0.9% MINIBAG 100 ML IV SCH (10:19)
[2020-01-22] MEDS: ENOXAPARIN 60 MG/0.6 ML SYRINGE SUBQ SCH (10:19)
--- NOTE | 2020-01-22 13:44 | CONSULTATION NOTE ---
Palliative Care Follow Up - Referral Referring Provider: Dr. Angie Lisa Time of Visit: Referral setting: Hospitalized patient Referral Reason: FTT/Goals of Care - Information Sources Records reviewed: Previous records reviewed History/Review of Systems obtained from: Caregiver Exam limitations: Clinical condition (patient only able to whisper a few words) - History of Present Illness Update Brief HPI Update: Please see HPI 01/20. This is an 79-year-old woman, who has been having symptoms of failure to thrive, more difficulty with eating, significant weight loss, acutely admitted for UTI. She is more easily arousable today, but drifts off to sleep quite easily. She is disoriented, unable to answer any questions, or participate in conversation. She speaks in just whispers, was able to point out her mouth was dry, mouth care given as well as feeling cold warm blankets were applied. She was awake for maybe total 5 to 10 minutes, then drifted right back to sleep and difficult to arouse. Currently awaiting information from son regarding if able to take her home, versus placement. We will continue to revisit goals of care as patient continues to do poorly. Social History - Living Situation Living arrangement: Assisted living Support System: Patient has a complicated history, was hospitalized in March, transition to longterm all were prolonged stays. She ended up at [facility] to be closer to her sister, but has continued to deteriorate and now presents an acute decline.Son lives in [place], is trying to define caregiving situation, that would be most supportive given the current situation. Medications/Allergies - Medications Active Medication List: Active Medications Enoxaparin Sodium (Lovenox) 50 mg SUBQ DAILY MARIA DEL CARMEN Last Admin: 01/22/20 10:19 Dose: 50 mg Famotidine (Pepcid) 20 mg IVP QPM MARIA DEL CARMEN Last Admin: 01/21/20 20:47 Dose: 20 mg Ceftriaxone Sodium 1 gm/ (Sodium Chloride) 100 mls @ 200 mls/hr IV DAILY MARIA DEL CARMEN Last Infusion: 01/22/20 10:54 Dose: Infused Acetaminophen (Ofirmev) 100 mls @ 400 mls/hr IV Q6HR PRN PRN Reason: Pain or Fever > 38C (100.4F) Dextrose/Sodium Chloride (D5ns) 1,000 mls @ 40 mls/hr IV .Q25H MARIA DEL CARMEN Last Infusion: 01/21/20 22:17 Dose: 40 mls/hr Mineral Oil (Cavilon) 1 applic TOP PRN PRN PRN Reason: Skin Care Last Admin: 01/21/20 20:54 Dose: 2 applic Ondansetron HCl (Zofran Inj) 4 mg IVP Q6HR PRN PRN Reason: Nausea / Vomiting Sodium Chloride (Normal Saline Flush 0.9%) 10 ml IVP PRN PRN PRN Reason: NEEDED PER PROVIDER ORDERS Last Admin: 01/21/20 20:47 Dose: 10 ml Sodium Chloride (Normal Saline Flush 0.9%) 10 ml IVP 0100,0900,1700 MARIA DEL CARMEN Last Admin: 01/22/20 10:20 Dose: Not Given Sodium Chloride (Normal Saline Flush 0.9%) 20 ml IVP PRN PRN PRN Reason: After Blood Draw Cholecalciferol [Vitamin D3] 10,000 unit PO DAILY 01/15/20 Cyanocobalamin [Vitamin B-12] 1,000 mcg IM MO 01/15/20 Escitalopram Oxalate 20 mg PO DAILY 01/15/20 Fluticasone [Flonase] 2 sprays MAURICE BID 01/15/20 Glutamine [Endari] 10 ml PO BID 01/15/20 Lansoprazole [Prevacid] 15 mg PO DAILY 01/15/20 Metoclopramide [Reglan] 10 mg PO AC 01/15/20 Ondansetron Odt [Zofran Odt] 4 mg TL Q4H PRN 01/15/20 Saccharomyces Boulardii [Florastor] 250 mg PO BID 01/15/20 Vitamin B Complex 1 each PO DAILY 01/15/20 Warfarin Sodium [Coumadin] 3 mg PO DAILY 01/15/20 - Allergies Allergies/Adverse Reactions: Allergies Allergy/AdvReac Type Severity Reaction Status Date / Time alendronate sodium Allergy Unknown Verified 01/15/20 12:14 [From Fosamax] codeine Allergy Unknown Verified 01/15/20 12:14 fentanyl Allergy Unknown Verified 01/15/20 12:14 ibandronate sodium Allergy Unknown Verified 01/15/20 12:14 risedronate sodium Allergy Unknown Verified 01/15/20 12:14 [From Actonel] Sulfa (Sulfonamide Allergy Unknown Verified 01/15/20 12:14 Antibiotics) Review of Systems - Constitutional Constitutional: reports: Weight loss - Ears, Nose & Throat Ears, Nose & Throat: reports: Dry mouth - Cardiovascular Cardiovascular: reports: Edema - Gastrointestinal Gastrointestinal: reports: Diarrhea (oozing stool), Other (NPO r/t dysphagia/decreased alertness) - Genitourinary Genitourinary: reports: Other (has ruano catheter) - Musculoskeletal Musculoskeletal: reports: Muscle pain, Stiffness, Muscle weakness, Other (currently bedbound) - Integumentary Integumentary: reports: Dryness - Neurological Neurological: reports: General weakness, Slurred speech (whispers/no coherent answers) - Psychiatric Psychiatric: reports: Anxiety (with repositioning/movement) - Endocrine Endocrine: reports: Intolerance to cold - Hematologic/Lymphatic Hematologic/Lymphatic: reports: Recurrent infections (receiving tx for UTI) - All Other Systems All Other Systems: reports: Other (limited ROS) Physical Exam - Vital Signs Vital Signs: Vital Signs x48h Temp Pulse Resp BP Pulse Ox 01/22/20 11:30 36.7 C 71 16 131/66 H 99 01/22/20 08:04 36.8 C 74 18 121/66 98 - Physical Exam General Appearance: positive: Lethargic, Cachetic Eyes Bilateral: positive: Other (opens eyes briefly with stimulus) ENT: positive: Dry mucous membranes Neck: positive: Trachea midline Respiratory: positive: No respiratory distress. negative: Wheezes Abdomen: positive: Non-tender, Soft, Tenderness (grimacing with palpation) Skin: positive: Dryness, Bruising Extremities: positive: Pedal edema (trace-1+/) Neurologic/Psychiatric: positive: Disoriented to person, Disoriented to place, Disoriented to time, Weakness, Unintelligible speech, Flat affect Palliative Care - POLST Patient has POLST: No POLST Status: DNR Pain: Pain unchanged, Location (grimacing with movement repositioning) Results - Lab Results Lab results reviewed: Yes Fish Bones: 01/20/20 05:55 01/20/20 05:55 Impression and Recommendations - Palliative Care Impression: This is an 79-year-old woman who presents with failure to thrive, who has had recent both functional and cognitive decline, continues to present hectic and lethargic. She is more easily aroused, though drifts quite often unable to respond to questions, though few whispers. She is currently receiving medically assisted nutrition and antibiotics for support. Awaiting at this point in time further follow-up from son regarding goals of care and transition plans. Recommendations/Counseling Done: 1. Advanced care planning. Awaiting follow up from son, unable to leave a message. Decisions remain 1) NG tube, to leave for medication management/when to withdraw treatment 2) Transition plan for EOL care-home with hospice support and 24/7 care vs placement both would be private pay. This was left with hospitalist to follow up with son, DCRN has reached out to SNF, she will continue to make contact. Patient will need new POLST for transfer/transition setting. Time Spent: 20 minutes is greater than 50% of this done in coordination of care with hospitalist and clinical team.
[2020-01-22] MEDS: DEXTROSE 5%-0.9% NACL 1,000 ML IV SCH (17:53)
--- NOTE | 2020-01-22 18:25 | PROVIDER PROGRESS NOTE ---
Subjective - Prog Note Date Prog Note Date: 01/22/20 - Subjective Pt reports feeling: No change Subjective: pt has slight more aroused in the morning, but keep the same in the afternoon, still present lethargic status. I called pt's son Al, at [phone], no one picked up the phone, I left a brief message to him. certified social workers in health care already called pt's son, wait for her son's response. Her son Al called me back, he want his mother be d/c to his home with hospice care. now he is still looking for caregiver. Current Medications - Current Medications Current Medications: Active Medications Enoxaparin Sodium (Lovenox) 50 mg SUBQ DAILY [facility] Last Admin: 01/22/20 10:19 Dose: 50 mg Famotidine (Pepcid) 20 mg IVP QPM [facility] Last Admin: 01/21/20 20:47 Dose: 20 mg Ceftriaxone Sodium 1 gm/ (Sodium Chloride) 100 mls @ 200 mls/hr IV DAILY [facility] Last Infusion: 01/22/20 10:54 Dose: Infused Acetaminophen (Ofirmev) 100 mls @ 400 mls/hr IV Q6HR PRN PRN Reason: Pain or Fever > 38C (100.4F) Dextrose/Sodium Chloride (D5ns) 1,000 mls @ 40 mls/hr IV .Q25H [facility] Last Admin: 01/22/20 17:53 Dose: 40 mls/hr Mineral Oil (Cavilon) 1 applic TOP PRN PRN PRN Reason: Skin Care Last Admin: 01/21/20 20:54 Dose: 2 applic Ondansetron HCl (Zofran Inj) 4 mg IVP Q6HR PRN PRN Reason: Nausea / Vomiting Sodium Chloride (Normal Saline Flush 0.9%) 10 ml IVP PRN PRN PRN Reason: NEEDED PER PROVIDER ORDERS Last Admin: 01/21/20 20:47 Dose: 10 ml Sodium Chloride (Normal Saline Flush 0.9%) 10 ml IVP 0100,0900,1700 [facility] Last Admin: 01/22/20 17:54 Dose: Not Given Sodium Chloride (Normal Saline Flush 0.9%) 20 ml IVP PRN PRN PRN Reason: After Blood Draw Cholecalciferol [Vitamin D3] 10,000 unit PO DAILY 01/15/20 Cyanocobalamin [Vitamin B-12] 1,000 mcg IM MO 01/15/20 Escitalopram Oxalate 20 mg PO DAILY 01/15/20 Fluticasone [Flonase] 2 sprays MAURICE BID 01/15/20 Glutamine [Endari] 10 ml PO BID 01/15/20 Lansoprazole [Prevacid] 15 mg PO DAILY 01/15/20 Metoclopramide [Reglan] 10 mg PO AC 01/15/20 Ondansetron Odt [Zofran Odt] 4 mg TL Q4H PRN 01/15/20 Saccharomyces Boulardii [Florastor] 250 mg PO BID 01/15/20 Vitamin B Complex 1 each PO DAILY 01/15/20 Warfarin Sodium [Coumadin] 3 mg PO DAILY 01/15/20 Objective - Vital Signs/Intake & Output Vital Signs: Vital Signs x48h Temp Pulse Pulse Resp BP Pulse Ox 01/22/20 15:35 36.9 C 73 16 109/49 L 97 01/22/20 11:30 36.7 C 71 16 131/66 H 99 Intake & Output: Intake & Output 01/19/20 01/20/20 01/21/20 01/22/20 23:59 23:59 23:59 23:59 Intake Total 2486.866 2311 2360.333 1862.667 Output Total 825 1205 1160 550 Balance 1252.920 1441 2931.360 4976.667 - Objective General Appearance: positive: No acute distress, Lethargic Eyes Bilateral: positive: Normal inspection, PERRL ENT: positive: ENT inspection nml, No signs of dehydration. negative: Purulent nasal drainage Neck: positive: Nml inspection, Thyroid nml, Trachea midline, Thyromegaly. negative: Stiff neck, Tracheal deviation Respiratory: positive: Chest non-tender, No respiratory distress. negative: Wheezes, Rales, Rhonchi Cardiovascular: positive: Regular rate & rhythm, No murmur. negative: Irregularly irregular, Tachycardia, Bradycardia, Systolic murmur Peripheral Pulses: 2+ Radial (R), 2+ Radial (L) Abdomen: positive: Non-tender, Nml bowel sounds, No distention. negative: Tenderness Back: positive: Nml inspection Skin: positive: Color nml, No rash, Warm, Dry. negative: Cyanosis, Diaphoresis, Pallor Extremities: positive: Non-tender, Nml appearance. negative: Calf tenderness, Arminda's sign/cords Neurologic/Psychiatric: negative: Sensory loss, Facial droop, Slurred/abnml speech - Lab Results Fish Bones: 01/20/20 05:55 01/20/20 05:55 ABX Reporting Has patient been on IV antibiotics over the past 48 hours?: Yes Assessment/Plan - Problem List (1) Altered mental status Impression: 01/21 pt basically remain the same, barely response to the verbal command, lethargic, mouth breathes. reach to her Son, Crispin, he still want to have hospice care for his mother at his home continue followup pilliative care, and hospice care, consult with certified social workers in health care to arrange for hospice care continue NG tube feeding now, continue consult with outpatient clerk, will continue discussed with pt's son if continue NG for d/c to hospice care. (2) UTI (urinary tract infection) 01/21 continue to finish the treatment course of antibiotics. (3) Proteus mirabilis infection Assessment/Plan: 01/21 continue to finish the treatment course of antibiotics. (4) Acute kidney injury superimposed on chronic kidney disease Assessment/Plan: improved. Continue with current plan with hydration and management. (5) Severe protein-calorie malnutrition Assessment/Plan: continue consult with outpatient clerk, pt tolerating her maximum rate for her size. Free water order, in addition, will be added by the RD today (6) Hypokalemia Assessment/Plan: 01/21 pt is planned for hospice care. resolved in 01/19 lab test (7) Anemia Assessment/Plan: 01/21 pt is planned for hospice care. stable (8) Cerebrovascular accident, old Assessment/Plan: As per CT scan on admission. stable (9) Dementia Assessment/Plan: chronic, advanced dementia (10) Dehydration Assessment/Plan: clinic resolved. continue free water to her NG tube feeds (11) Warfarin not tolerated Assessment/Plan: continue hospice care per pt's son request (12) Elevated INR Assessment/Plan: continue hospice care per pt's son request (13) Hypernatremia Assessment/Plan: Resolved Qualifiers: Qualified Code(s): R40.2422 - [place] coma scale score 9-12, at arrival to emergency department
[2020-01-22] MEDS: FAMOTIDINE 20 MG/2 ML SYRINGE IVP SCH (20:41)
[2020-01-22] MEDS: SODIUM CHLORIDE FLUSH 0.9% 10 ML SYRINGE IVP PRN (20:42)
[2020-01-22] MEDS: MIN OIL/DIMETHICON/COCONUT OIL 92 GM TUBE TOP PRN (21:00)
[2020-01-23] MEDS: SODIUM CHLORIDE FLUSH 0.9% 10 ML SYRINGE IVP SCH ×3 (06:12→16:23)
[2020-01-23] MEDS: ENOXAPARIN 60 MG/0.6 ML SYRINGE SUBQ SCH (10:00)
[2020-01-23] MEDS: cefTRIAXone 1 GM in SODIUM CHLORIDE 0.9% MINIBAG 100 ML IV SCH (10:01)
--- NOTE | 2020-01-23 11:54 | PROVIDER PROGRESS NOTE ---
Assessment/Plan - Problem List (1) Altered mental status Qualifiers: Qualified Code(s): R40.2422 - Cando coma scale score 9-12, at arrival to emergency department Assessment/Plan: 01/22 pt is remaining the similar conditions, difficult to arouse. Per health care social worker report, pt's picked up the wrong agents for hospice care. SW continue cooperate with pt's son to find the correct hospice agent and caregiver. continue tube feeding now. 01/21 pt basically remain the same, barely response to the verbal command, lethargic, mouth breathes. reach to her Son, Crispin, he still want to have hospice care for his mother at his home continue followup pilliative care, and hospice care, consult with health care social worker to arrange for hospice care continue NG tube feeding now, continue consult with curtain drier, will continue discussed with pt's son if continue NG for d/c to hospice care. (2) UTI (urinary tract infection) 01/22 today pt's antibiotic will be finished at 8 day, and will hold, continue monitor and ruano care. followup hospice care. 01/21 continue to finish the treatment course of antibiotics. (3) Proteus mirabilis infection Assessment/Plan: 01/22 today pt's antibiotic will be finished at 8 day, and will hold 01/21 continue to finish the treatment course of antibiotics. (4) Acute kidney injury superimposed on chronic kidney disease Assessment/Plan: improved. Continue with current plan with hydration and management. (5) Severe protein-calorie malnutrition Assessment/Plan: continue consult with curtain drier, pt tolerating her maximum rate for her size. Free water order, in addition, will be added by the RD today (6) Hypokalemia Assessment/Plan: 01/21 pt is planned for hospice care. resolved in 01/19 lab test (7) Anemia Assessment/Plan: 01/21 pt is planned for hospice care. stable (8) Cerebrovascular accident, old Assessment/Plan: As per CT scan on admission. stable (9) Dementia Assessment/Plan: chronic, advanced dementia (10) Dehydration Assessment/Plan: clinic resolved. continue free water to her NG tube feeds (11) Warfarin not tolerated Assessment/Plan: continue hospice care per pt's son request (12) Elevated INR Assessment/Plan: continue hospice care per pt's son request (13) Hypernatremia Assessment/Plan: Resolved (14)hospice care pt's son continue request hospice care, palliative and health care social worker consulted, and seek hospice care at pt's home by pt's son request. - Current Meds Current Meds: Current Medications Generic Name Dose Route Start Last Admin Trade Name Freq PRN Reason Stop Dose Admin Enoxaparin Sodium 50 mg 01/18/20 10:00 01/23/20 10:00 Lovenox SUBQ 50 mg DAILY [facility]IA DEL CARMEN Administration Famotidine 20 mg 01/15/20 21:00 01/22/20 20:41 Pepcid IVP 20 mg QPM [facility]IA DEL CAR[facility] Administration Ceftriaxone Sodium 1 gm/ 100 mls @ 200 mls/hr 01/16/20 09:00 01/23/20 10:40 Sodium Chloride IV Infused DAILY [facility] DEL CAR[facility] Infusion Dextrose/Sodium Chloride 1,000 mls @ 40 mls/hr 01/20/20 10:00 01/22/20 17:53 D5ns IV 40 mls/hr .Q25H [facility]IA DEL CARMEN Administration Mineral Oil 1 applic 01/15/20 16:36 01/22/20 21:00 Cavilon TOP 1 applic PRN PRN Administration Skin Care Sodium Chloride 10 ml 01/15/20 14:22 01/22/20 20:42 Normal Saline Flush 0.9% IVP 10 ml PRN PRN Administration NEEDED PER PROVIDER ORDERS Sodium Chloride 10 ml 01/15/20 17:00 01/23/20 10:00 Normal Saline Flush 0.9% IVP 10 ml 0100,0900,1700 [facility] DEL CARMEN Administration - Lab Result Fish Bone Diagrams: 01/20/20 05:55 01/20/20 05:55 Objective Vital Signs: Vital Signs - 24 hr 01/22/20 01/22/20 01/22/20 15:35 20:00 23:53 Temperature 36.9 C 36.9 C 36.5 C Heart Rate [ 79 Brachial] Heart Rate [ 73 83 Monitoring electrodes] Respiratory 16 16 16 Rate Blood Pressure 134/52 H [Right Brachial artery] Blood Pressure 109/49 L 111/47 L [Right Radial artery] O2 Saturation 97 95 94 01/23/20 01/23/20 05:00 09:00 Temperature 36.5 C 37.1 C Heart Rate [ 78 84 Brachial] Heart Rate [ Monitoring electrodes] Respiratory 16 16 Rate Blood Pressure 122/56 L 136/77 H [Right Brachial artery] Blood Pressure [Right Radial artery] O2 Saturation 94 97 Oxygen O2 Source Room air I&O (Last 24 Hrs): Intake and Output Totals x24h 01/21/20 01/22/20 01/23/20 23:59 23:59 23:59 Intake Total 2360.333 2336.667 610 Output Total 1160 800 425 Balance 1542.965 9660.667 185 General: Alert HEENT: Atraumatic Neck: Supple Lymphatic: no adenopathy Neuro: Alert Cardiovascular: Regular rate Respiratory: Chest non-tender, No respiratory distress Abdomen: Normal bowel sounds, Soft Extremities: Normal pulses - Results Results: Laboratory Results WBC 9.4 x10^3/uL (4.8-10.8) 01/20/20 05:55 RBC 2.98 10^6/uL (4.20-5.40) L 01/20/20 05:55 Hgb 8.5 g/dL (12.0-16.0) L 01/20/20 05:55 Hct 27.0 % (37.0-47.0) L 01/20/20 05:55 MCV 90.6 fL (81.0-99.0) 01/20/20 05:55 MCH 28.5 pg (27.0-31.0) 01/20/20 05:55 MCHC 31.5 g/dL (32.0-36.0) L 01/20/20 05:55 RDW 16.2 % (12.0-15.0) H 01/20/20 05:55 Plt Count 173 10^3/uL (130-450) 01/20/20 05:55 MPV 10.5 fL (7.9-10.8) 01/20/20 05:55 Neut # (Auto) 6.2 10^3/uL (1.5-6.6) 01/20/20 05:55 Lymph # (Auto) 2.1 10^3/uL (1.5-3.5) 01/20/20 05:55 [place] # (Auto) 0.9 10^3/uL (0.0-1.0) 01/20/20 05:55 Eos # (Auto) 0.2 10^3/uL (0.0-0.7) 01/20/20 05:55 Baso # (Auto) 0.0 10^3/uL (0.0-0.1) 01/20/20 05:55 Absolute Nucleated RBC 0.00 x10^3/uL 01/20/20 05:55 Nucleated RBC % 0.0 /100WBC 01/20/20 05:55 PT 17.4 secs (9.9-12.6) H 01/18/20 04:30 INR 1.6 (0.8-1.2) H 01/18/20 04:30 Whole Blood INR 6.2 (0.8-1.2) H* 01/16/20 08:35 Sodium 134 mmol/L (135-145) L 01/20/20 05:55 Potassium 4.1 mmol/L (3.5-5.0) 01/20/20 05:55 Chloride 108 mmol/L (101-111) 01/20/20 05:55 Carbon Dioxide 20 mmol/L (21-32) L 01/20/20 05:55 Anion Gap 6.0 (6-13) 01/20/20 05:55 BUN 30 mg/dL (6-20) H 01/20/20 05:55 Creatinine 2.2 mg/dL (0.4-1.0) H 01/20/20 05:55 Estimated GFR (MDRD) 21 (>89) L 01/20/20 05:55 Glucose 118 mg/dL (70-100) H 01/20/20 05:55 Lactic Acid 1.4 mmol/L (0.5-2.2) 01/15/20 12:55 Calcium 9.5 mg/dL (8.5-10.3) 01/20/20 05:55 Magnesium 1.5 mg/dL (1.7-2.8) L 01/20/20 05:55 Iron 19 ug/dL (28-170) L 01/18/20 04:30 Transferrin < 70 mg/dL (192-382) L 01/18/20 04:30 Total Bilirubin 1.2 mg/dL (0.2-1.0) H 01/15/20 12:55 AST 42 IU/L (10-42) 01/15/20 12:55 ALT 21 IU/L (10-60) 01/15/20 12:55 Alkaline Phosphatase 27 IU/L (42-121) L 01/15/20 12:55 Troponin I High Sens 76.8 ng/L (2.3-14.8) H* 01/15/20 16:01 B-Natriuretic Peptide 88 pg/mL (5-100) 01/15/20 12:55 Total Protein 6.6 g/dL (6.7-8.2) L 01/15/20 12:55 Albumin 3.3 g/dL (3.2-5.5) 01/15/20 12:55 Globulin 3.3 g/dL (2.1-4.2) 01/15/20 12:55 Albumin/Globulin Ratio 1.0 (1.0-2.2) 01/15/20 12:55 Lipase 56 U/L (22-51) H 01/15/20 12:55 Vitamin B12 > 7000 pg/mL (180-914) H 01/18/20 04:30 Folate 17.66 ng/mL (5.90 - >24.8) 01/18/20 04:30 Urine Color DARK YELLOW 01/15/20 13:32 Urine Clarity CLOUDY (CLEAR) 01/15/20 13:32 Urine pH 8.0 PH (5.0-7.5) H 01/15/20 13:32 Ur Specific [place] 1.020 (1.002-1.030) 01/15/20 13:32 Urine Protein 100 mg/dL (NEGATIVE) H 01/15/20 13:32 Urine Glucose (UA) NEGATIVE mg/dL (NEGATIVE) 01/15/20 13:32 Urine Ketones TRACE mg/dL (NEGATIVE) 01/15/20 13:32 Urine Occult Blood SMALL (NEGATIVE) H 01/15/20 13:32 Urine Nitrite NEGATIVE (NEGATIVE) 01/15/20 13:32 Urine Bilirubin NEGATIVE (NEGATIVE) 01/15/20 13:32 Urine Urobilinogen 0.2 (NORMAL) E.U./dL (NORMAL) 01/15/20 13:32 Ur Leukocyte Esterase LARGE (NEGATIVE) H 01/15/20 13:32 Urine RBC 11-25 /HPF (0-5) H 01/15/20 13:32 Urine WBC >25 /HPF (0-5) H 01/15/20 13:32 Ur Epithelial Cells FEW Renal Tubular /HPF (<= Few) 01/15/20 13:32 Ur Squamous Epith Cells RARE Squamous (<= Few) 01/15/20 13:32 Urine Crystals 3-5 Triple Phosphate /LPF 01/15/20 13:32 Urine Bacteria Moderate /HPF (None Seen) H 01/15/20 13:32 Ur Microscopic Review INDICATED 01/15/20 13:32 Urine Culture Comments INDICATED 01/15/20 13:32 Urine Creatinine 32.3 mg/dL 01/18/20 10:52 Urine Potassium 18.0 mmol/L 01/18/20 19:45 Coronavirus (PCR) NEGATIVE 01/15/20 13:17 ABX Reporting Has patient been on IV antibiotics over the past 48 hours?: Yes Current Medications - Current Medications Current Medications: Active Medications Enoxaparin Sodium (Lovenox) 50 mg SUBQ DAILY [facility] Last Admin: 01/24/20 09:52 Dose: 50 mg Famotidine (Pepcid) 20 mg IVP QPM [facility] Last Admin: 01/23/20 20:09 Dose: 20 mg Acetaminophen (Ofirmev) 100 mls @ 400 mls/hr IV Q6HR PRN PRN Reason: Pain or Fever > 38C (100.4F) Mineral Oil (Cavilon) 1 applic TOP PRN PRN PRN Reason: Skin Care Last Admin: 01/22/20 21:00 Dose: 1 applic Ondansetron HCl (Zofran Inj) 4 mg IVP Q6HR PRN PRN Reason: Nausea / Vomiting Sodium Chloride (Normal Saline Flush 0.9%) 10 ml IVP PRN PRN PRN Reason: NEEDED PER PROVIDER ORDERS Last Admin: 01/22/20 20:42 Dose: 10 ml Sodium Chloride (Normal Saline Flush 0.9%) 10 ml IVP 0100,0900,1700 [facility] Last Admin: 01/24/20 09:52 Dose: 10 ml Sodium Chloride (Normal Saline Flush 0.9%) 20 ml IVP PRN PRN PRN Reason: After Blood Draw Cholecalciferol [Vitamin D3] 10,000 unit PO DAILY 01/15/20 Cyanocobalamin [Vitamin B-12] 1,000 mcg IM MO 01/15/20 Escitalopram Oxalate 20 mg PO DAILY 01/15/20 Fluticasone [Flonase] 2 sprays MAURICE BID 01/15/20 Glutamine [Endari] 10 ml PO BID 01/15/20 Lansoprazole [Prevacid] 15 mg PO DAILY 01/15/20 Metoclopramide [Reglan] 10 mg PO AC 01/15/20 Ondansetron Odt [Zofran Odt] 4 mg TL Q4H PRN 01/15/20 Saccharomyces Boulardii [Florastor] 250 mg PO BID 01/15/20 Vitamin B Complex 1 each PO DAILY 01/15/20 Warfarin Sodium [Coumadin] 3 mg PO DAILY 01/15/20
--- NOTE | 2020-01-23 15:35 | CONSULTATION NOTE ---
Palliative Care Follow Up - Referral Referring Provider: Angie Lisa Time of Visit: 12:05-12:30; Referral setting: Hospitalized patient Referral Reason: FTT/Protien Román Malnutrition/Goals of Care - Information Sources Records reviewed: Previous records reviewed History/Review of Systems obtained from: Nursing Exam limitations: Clinical condition (patient nonverbal) - History of Present Illness Update Brief HPI Update: This is an 79-year-old woman who was admitted acutely for failure to thrive. With increased weight loss, diagnosed with UTI, dehydration, and has not showed any signs or symptoms of improvement. She does show some symptoms of fluid overload, with mild anasarca in her extremities, and some increased respiratory effort. Please see HPI 01/20 for more complete history. Follow-up today with caregivers, patient is not been much more than flutter her eyes, does show some pain behaviors with moving only. Otherwise rest quite comfortably in between. She has not demonstrated any discomfort with tube feeding, though she does have some tenderness with abdominal palpation. She does have a Ruano draining clear yellow urine, her mouth is dry, nursing doing frequent oral care. Goals of care and review again with son, is to focus on comfort, return her home, with hospice support. Patient has completed treatment of her UTI, last dose of antibiotics is today. Patient has not responded to fluid or nutritional support, nor treatment of UTI. Remains nonverbal and bedbound. Social History - Living Situation Living arrangement: Other (patient has been at [place]; current plan is to transition to her home in [place] with hospice) Support System: Patient was living at [facility], it was to be a temporary arrangement. She has her home in [place], her son is making arrangements hopefully to bring her home there, for end-of-life care. Medications/Allergies - Medications Active Medication List: Active Medications Enoxaparin Sodium (Lovenox) 50 mg SUBQ DAILY [facility] Last Admin: 01/23/20 10:00 Dose: 50 mg Famotidine (Pepcid) 20 mg IVP QPM [facility] Last Admin: 01/22/20 20:41 Dose: 20 mg Acetaminophen (Ofirmev) 100 mls @ 400 mls/hr IV Q6HR PRN PRN Reason: Pain or Fever > 38C (100.4F) Mineral Oil (Cavilon) 1 applic TOP PRN PRN PRN Reason: Skin Care Last Admin: 01/22/20 21:00 Dose: 1 applic Ondansetron HCl (Zofran Inj) 4 mg IVP Q6HR PRN PRN Reason: Nausea / Vomiting Sodium Chloride (Normal Saline Flush 0.9%) 10 ml IVP PRN PRN PRN Reason: NEEDED PER PROVIDER ORDERS Last Admin: 01/22/20 20:42 Dose: 10 ml Sodium Chloride (Normal Saline Flush 0.9%) 10 ml IVP 0100,0900,1700 [facility] Last Admin: 01/23/20 10:00 Dose: 10 ml Sodium Chloride (Normal Saline Flush 0.9%) 20 ml IVP PRN PRN PRN Reason: After Blood Draw Cholecalciferol [Vitamin D3] 10,000 unit PO DAILY 01/15/20 Cyanocobalamin [Vitamin B-12] 1,000 mcg IM MO 01/15/20 Escitalopram Oxalate 20 mg PO DAILY 01/15/20 Fluticasone [Flonase] 2 sprays MAURICE BID 01/15/20 Glutamine [Endari] 10 ml PO BID 01/15/20 Lansoprazole [Prevacid] 15 mg PO DAILY 01/15/20 Metoclopramide [Reglan] 10 mg PO AC 01/15/20 Ondansetron Odt [Zofran Odt] 4 mg TL Q4H PRN 01/15/20 Saccharomyces Boulardii [Florastor] 250 mg PO BID 01/15/20 Vitamin B Complex 1 each PO DAILY 01/15/20 Warfarin Sodium [Coumadin] 3 mg PO DAILY 01/15/20 - Allergies Allergies/Adverse Reactions: Allergies Allergy/AdvReac Type Severity Reaction Status Date / Time alendronate sodium Allergy Unknown Verified 01/15/20 12:14 [From Fosamax] codeine Allergy Unknown Verified 01/15/20 12:14 fentanyl Allergy Unknown Verified 01/15/20 12:14 ibandronate sodium Allergy Unknown Verified 01/15/20 12:14 risedronate sodium Allergy Unknown Verified 01/15/20 12:14 [From Actonel] Sulfa (Sulfonamide Allergy Unknown Verified 01/15/20 12:14 Antibiotics) Review of Systems - Cardiovascular Cardiovascular: reports: Edema - Gastrointestinal Gastrointestinal: reports: Other (NG tube with feeding) - Genitourinary Genitourinary: reports: Other (ruano catheter) - Musculoskeletal Musculoskeletal: reports: Stiffness, Muscle weakness, Other (bedbound) - Integumentary Integumentary: reports: Dryness - Neurological Neurological: reports: Other (rouses to painful stimulus mostly; occasional eye fluttering with verbal stimulation) - Psychiatric Psychiatric: denies: Aggitation - Endocrine Endocrine: reports: Intolerance to cold - All Other Systems All Other Systems: reports: Other (limited ROS) Physical Exam - Vital Signs Vital Signs: Vital Signs x48h Temp Pulse Resp BP Pulse Ox 01/23/20 12:40 37.1 C 84 16 136/77 H 97 01/23/20 09:00 37.1 C 84 16 136/77 H 97 - Physical Exam General Appearance: positive: Nonresponsive Eyes Bilateral: positive: Other (occasional eye fluttering; no eye contact or opening today) ENT: positive: Dry mucous membranes Neck: positive: Trachea midline Respiratory: positive: No respiratory distress Abdomen: positive: Soft, Tenderness Skin: positive: Pallor, Dryness Extremities: positive: Other (mild edema pooling in extremities) Neurologic/Psychiatric: positive: Other (nonresponsivie) Palliative Care - POLST POLST Status: DNR Pain: Pain unchanged, Comment (with movement and respostitioning; settles in at resst) Feelings of wellbeing/Perceived Quality of Life: Poor, Worsening Performance Status: Patient bedbound, nonresponsive, total care. - Palliative Care Discussion: 12:15 Spoke with his son Al, had not looked at hospice list yet. He was waiting for caregiver whom he is working with on interviewing today. Is going to ask her advice, and get back to hospital team. Discussed patient is continue to be nonresponsive, is currently still receiving supportive fluids/care. Her UTI now has been treated, she has received the last antibiotic. Patient is now demonstrating some third spacing, will stop IV fluids. Discussed at this point in time would recommend withdrawing NG feedings, with goals of comfort and transitioning home with hospice. He is requesting direction on this, will await final decision on hospice and if caregiving support. Reiterated patient decisions need to be made fairly quickly, as we transition to comfort measures. Results - Lab Results Lab results reviewed: Yes Fish Bones: 01/20/20 05:55 01/20/20 05:55 Impression and Recommendations - Palliative Care Impression: This is an 79-year-old woman who presents with ongoing failure to thrive, who has had both slow functional and cognitive decline, now acutely presents is nonverbal, cachectic and nonresponsive. Goals include focus on comfort, and transitioning home with hospice. Awaiting further transition plan choices from son. Recommendations/Counseling Done: 1. Failure to thrive. Patient continues to show decline, is having some third spacing, IV fluids will be stopped. Awaiting final discharge plans, will withdraw NG feeding with transition to comfort measures. Patient continues to be nonresponsive, does not appear in any acute distress, plan is to transition home with hospice. 2. Advanced care planning. Awaiting final decision from son regarding hospice choice, as well as confirmation has caregiving support. Working with both palliative care and discharge planning team.
[2020-01-23] MEDS: FAMOTIDINE 20 MG/2 ML SYRINGE IVP SCH (20:09)
[2020-01-24] MEDS: SODIUM CHLORIDE FLUSH 0.9% 10 ML SYRINGE IVP SCH ×3 (00:59→19:51)
[2020-01-24] MEDS: ENOXAPARIN 60 MG/0.6 ML SYRINGE SUBQ SCH (09:52)
--- NOTE | 2020-01-24 14:44 | PROVIDER PROGRESS NOTE ---
Subjective - Prog Note Date Prog Note Date: 01/24/20 - Subjective Pt reports feeling: No change Subjective: pt is still lethargic, and not response to command. director of social media marketing did have a hospice agent for pt, close to pt's son home. But hospice agent hope pt has no NG tube. connection worker talked with pt's son about d/c of NG tube. pt's son state he will call back for agreement of d/c of NG, we are waiting for her answer. Current Medications - Current Medications Current Medications: Active Medications Enoxaparin Sodium (Lovenox) 50 mg SUBQ DAILY [facility] Last Admin: 01/24/20 09:52 Dose: 50 mg Famotidine (Pepcid) 20 mg IVP QPM [facility] Last Admin: 01/23/20 20:09 Dose: 20 mg Acetaminophen (Ofirmev) 100 mls @ 400 mls/hr IV Q6HR PRN PRN Reason: Pain or Fever > 38C (100.4F) Mineral Oil (Cavilon) 1 applic TOP PRN PRN PRN Reason: Skin Care Last Admin: 01/22/20 21:00 Dose: 1 applic Ondansetron HCl (Zofran Inj) 4 mg IVP Q6HR PRN PRN Reason: Nausea / Vomiting Sodium Chloride (Normal Saline Flush 0.9%) 10 ml IVP PRN PRN PRN Reason: NEEDED PER PROVIDER ORDERS Last Admin: 01/22/20 20:42 Dose: 10 ml Sodium Chloride (Normal Saline Flush 0.9%) 10 ml IVP 0100,0900,1700 [facility] Last Admin: 01/24/20 09:52 Dose: 10 ml Sodium Chloride (Normal Saline Flush 0.9%) 20 ml IVP PRN PRN PRN Reason: After Blood Draw Cholecalciferol [Vitamin D3] 10,000 unit PO DAILY 01/15/20 Cyanocobalamin [Vitamin B-12] 1,000 mcg IM MO 01/15/20 Escitalopram Oxalate 20 mg PO DAILY 01/15/20 Fluticasone [Flonase] 2 sprays MAURICE BID 01/15/20 Glutamine [Endari] 10 ml PO BID 01/15/20 Lansoprazole [Prevacid] 15 mg PO DAILY 01/15/20 Metoclopramide [Reglan] 10 mg PO AC 01/15/20 Ondansetron Odt [Zofran Odt] 4 mg TL Q4H PRN 01/15/20 Saccharomyces Boulardii [Florastor] 250 mg PO BID 01/15/20 Vitamin B Complex 1 each PO DAILY 01/15/20 Warfarin Sodium [Coumadin] 3 mg PO DAILY 01/15/20 Objective - Vital Signs/Intake & Output Vital Signs: Vital Signs x48h Temp Pulse Resp BP Pulse Ox 01/24/20 07:37 37 C 79 20 138/54 H 97 Intake & Output: Intake & Output 01/21/20 01/22/20 01/23/20 01/24/20 23:59 23:59 23:59 23:59 Intake Total 2360.333 2336.667 2135 822 Output Total 1160 800 925 400 Balance 1716.342 4829.667 1210 422 - Objective General Appearance: positive: No acute distress, Alert, Lethargic Eyes Bilateral: positive: Normal inspection, No lid inflammation ENT: positive: ENT inspection nml, No signs of dehydration Neck: positive: Nml inspection, Thyroid nml, Trachea midline. negative: Thyromegaly, Stiff neck, Tracheal deviation Respiratory: positive: Chest non-tender, No respiratory distress. negative: Wheezes, Rales, Rhonchi Cardiovascular: positive: Regular rate & rhythm, No murmur. negative: Tachycardia, Bradycardia, Systolic murmur, Diastolic murmur Peripheral Pulses: 2+ Radial (R), 2+ Radial (L) Abdomen: positive: Non-tender, No organomegaly, Nml bowel sounds, No distention. negative: Tenderness, Guarding, Rebound Back: positive: Nml inspection Skin: positive: Color nml, No rash, Warm, Dry. negative: Cyanosis, Diaphoresis, Pallor Extremities: positive: Nml appearance. negative: Calf tenderness Neurologic/Psychiatric: negative: Sensory loss, Facial droop - Lab Results Fish Bones: 01/20/20 05:55 01/20/20 05:55 ABX Reporting Has patient been on IV antibiotics over the past 48 hours?: No Assessment/Plan - Problem List (1) Altered mental status Impression: 01/23 pt is remaining the similar conditions, lethargic and difficult to arouse. we wait for pt's son if d/c of NG tube. 01/22 pt is remaining the similar conditions, difficult to arouse. Per director of social media marketing report, pt's picked up the wrong agents for hospice care. SW continue cooperate with pt's son to find the correct hospice agent and caregiver. continue tube feeding now. 01/21 pt basically remain the same, barely response to the verbal command, lethargic, mouth breathes. reach to her Son, Crispin, he still want to have hospice care for his mother at his home continue followup pilliative care, and hospice care, consult with director of social media marketing to arrange for hospice care continue NG tube feeding now, continue consult with network security analyst, will continue discussed with pt's son if continue NG for d/c to hospice care. (2) UTI (urinary tract infection) 01/22 today pt's antibiotic will be finished at 8 day, and will hold, continue monitor and ruano care. followup hospice care. 01/21 continue to finish the treatment course of antibiotics. (3) Proteus mirabilis infection Assessment/Plan: 01/22 today pt's antibiotic will be finished at 8 day, and will hold 01/21 continue to finish the treatment course of antibiotics. (4) Acute kidney injury superimposed on chronic kidney disease Assessment/Plan: improved. Continue with current plan with hydration and management. (5) Severe protein-calorie malnutrition Assessment/Plan: continue consult with network security analyst, pt tolerating her maximum rate for her size. Free water order, in addition, will be added by the RD today (6) Hypokalemia Assessment/Plan: 01/21 pt is planned for hospice care. resolved in 01/19 lab test (7) Anemia Assessment/Plan: 01/21 pt is planned for hospice care. stable (8) Cerebrovascular accident, old Assessment/Plan: As per CT scan on admission. stable (9) Dementia Assessment/Plan: chronic, advanced dementia (10) Dehydration Assessment/Plan: clinic resolved. continue free water to her NG tube feeds (11) Warfarin not tolerated Assessment/Plan: continue hospice care per pt's son request (12) Elevated INR Assessment/Plan: continue hospice care per pt's son request (13) Hypernatremia Assessment/Plan: Resolved (14)hospice care pt's son continue request hospice care, palliative and director of social media marketing consulted, and seek hospice care at pt's home by pt's son request. Qualifiers: Qualified Code(s): R40.0791 - [place] coma scale score 9-12, at arrival to emergency department
[2020-01-24] MEDS: FAMOTIDINE 20 MG/2 ML SYRINGE IVP SCH (20:47)
[2020-01-25] MEDS: SODIUM CHLORIDE FLUSH 0.9% 10 ML SYRINGE IVP SCH (02:34)
--- NOTE | 2020-01-25 07:39 | Discharge Plan ---
Discharge Plan Problem Reviewed?: Yes Disposition: 50 Hospice/Home DC/Xfer Condition: Serious Prescriptions: LORazepam [Ativan] 0.5 mg PO Q6H PRN #15 tablet PRN Reason: Agitation Morphine Sulfate [Morphine Sulf Oral (Roxanol)] 5 mg PO Q2H PRN #30 ml PRN Reason: Pain/Dyspnea Instruction Topics: Hospice, Hospice Pain Management Health Concerns: hospice care Plan of Treatment: pt may followup [facility] Care Goals: quality of life and hospice care Assessment: discussed with pt's son the care plan, he understood Additional Instructions or Follow Up instructions: pt may followup [facility] care after d/c from hospital No Smoking: If you smoke, Please STOP! Call for help. Follow-up with: Michelle Jaquez ARNP [Primary Care Provider] -
--- NOTE | 2020-01-25 07:43 | DISCHARGE SUMMARY ---
"Discharge Summary Admit Date: 01/15/20 Discharge Date: 01/25/20 Discharging Provider: Vahid Rivera Primary Care Provider: Michelle Little Condition at Discharge: Serious Discharge Disposition: 50 Hospice/Home DC/Xfer Discharge Facility Name: home - DIAGNOSES Admission Diagnoses: (1) Altered mental status (2) UTI (urinary tract infection) (3) Acute on chronic kidney failure (4) Hypernatremia (5) Elevated INR (6) Warfarin not tolerated (7) Acute kidney injury superimposed on chronic kidney disease (8) Dehydration (9) Cerebrovascular accident, old (10) Dementia (11) Severe protein-calorie malnutrition (12) Anemia Discharge Diagnoses with Status of Each Condition: (1) Altered mental status remain lethargic and difficult for arouse. CT of head reveals unremarkable for acute finding. pt has hx of stroke and advance dementia. pt had palliative consult. pt's son chose hospice care for pt. social economist arranged hospice care for pt. pt's son agreed the arrangement. pt was not be alert to safely feed orally.SP evaluated pt's swallow function. Patient did not follow commands to do an oral-motor exam. She could not keep her eyes open. She did not attempt to take a small bite of applesauce. She opened her mouth, but did not close it around the spoon or attempt to take the applesauce off the spoon. Even if patient is safe to swallow some consistencies, keeping her nourished and hydrated has been an ongoing problem for months. It may be that some decisions must be made about alternative feeding methods. Then pt's son agreed pt had NG tube. Pt's son chose hospice care, than asked d/c NG tube. (2) UTI (urinary tract infection) pt had UTI with proteus mirabilis infection. pt finished her antibiotics treatment course in hospital. (3) Proteus mirabilis infection pt had UTI with proteus mirabilis infection. pt finished her antibiotics treatment course in hospital. (4) Acute kidney injury superimposed on chronic kidney disease improved/stable (5) Severe protein-calorie malnutrition documented 15# (12% UBW) lost in the past month, refusing food intermittently, trouble swallowing. pt had nutritionis consult with NG tube feeding at the hospital unit pt's NG was removed per pt's son request. (6) Hypokalemia resolved in 5/10 lab test (7) Anemia chronic, it is likely secondary to her CKD (8) Cerebrovascular accident, old chronic (9) advanced Dementia chronic, followup hospice per pt's son's request (10) Dehydration resolved (11) Warfarin not tolerated hold, followup hospice care (12) Elevated INR stable/resolved (13) Hypernatremia Resolved (14)hospice care Per previous provider, pt's son and palliative care provider discussion, pt has been on hospice care and waited for arrangement for pt to have hospice in pt's son home. petroleum refinery worker and pt's son together found a hospice provider [facility] accepted pt for hospice. I personal called pt's son Al for twice. I confirmed pt's son requested hospice care in his home for his mother. Today before pt was d/c to hospice. I called Al again, discussed with him the care plan, answer all his questions and concerns, confirmed he want to remove his mother's NG tube for hospice care. Al hope all lott in his mother hospital room to be brought back with pt to him. Al asked nurse call him. I give nurse Serena Melendez's phone to call him. Al satisfied all my answers and arrangements, no further questions. social economist fax pt's hospice meds to [facility] team. - HPI History of Present Illness: This is a 79 years old female with a medical history of dementia, history of CABG. patient is a resident's at [employer], she has been lost weight 15 pounds in the over the last 1 months, has been refused eating and taken medicine intermittently. Today stall noted patient had significantly reduced to response, also patient had a fever. In the ER patient was responded to pain stimuli, lethargic, with some verbalizing but without coherent, pt was also found to have UTI urinary tract infection, hypernatremia at sodium 149, acute kidney injury with a BUN of 98 and creatinine 5.1. Patient also had a elevated troponin now 65, a normal lactic acid level, normal temperature, normal WBC. - CONSULTS | PROCEDURES Consultations: Ms. Melissa Montaño, [facility] Procedures: hospice care - HOSPITAL COURSE Hospital Course: Patient was admitted for mental status change, lethargic, Response to painful stimulation, with some verbalizing but without coherent in the admission. patient was found to have severe acute kidney injury With creatinine 5.1, Hypernatremia. pt present advanced dementia. Patient was also found to have UTI urinary tract infection, Patient also has severe protein malnutrition, pt was not be alert to safely feed orally. pt had antibiotics treated for her UTI, you have IV of hydration. pt had NG tube for feeding. pt continue remain lethargic and difficult for arouse. pt had palliative consult. pt's son chose hospice care for pt. The detail hospital course is as the below. (1) Altered mental status remain lethargic and difficult for arouse. CT of head reveals unremarkable for acute finding. pt has hx of stroke and advance dementia. pt had palliative consult. pt's son chose hospice care for pt. social economist arranged hospice care for pt. pt's son agreed the arrangement. pt was not be alert to safely feed orally.SP evaluated pt's swallow function. Patient did not follow commands to do an oral-motor exam. She could not keep her eyes open. She did not attempt to take a small bite of applesauce. She opened her mouth, but did not close it around the spoon or attempt to take the applesauce off the spoon. Even if patient is safe to swallow some consistencies, keeping her nourished and hydrated has been an ongoing problem for months. It may be that some decisions must be made about alternative feeding methods. Then pt's son agreed pt had NG tube. Pt's son chose hospice care, than asked d/c NG tube. (2) UTI (urinary tract infection) pt had UTI with proteus mirabilis infection. pt finished her antibiotics treatment course in hospital. (3) Proteus mirabilis infection pt had UTI with proteus mirabilis infection. pt finished her antibiotics treatment course in hospital. (4) Acute kidney injury superimposed on chronic kidney disease improved/stable (5) Severe protein-calorie malnutrition documented 15# (12% UBW) lost in the past month, refusing food intermittently, trouble swallowing. pt had nutritionis consult with NG tube feeding at the hospital unit pt's NG was removed per pt's son request. (6) Hypokalemia resolved in 5/10 lab test (7) Anemia chronic, it is likely secondary to her CKD (8) Cerebrovascular accident, old chronic (9) advanced Dementia chronic, followup hospice per pt's son's request (10) Dehydration resolved (11) Warfarin not tolerated hold, followup hospice care (12) Elevated INR stable/resolved (13) Hypernatremia Resolved (14)hospice care Per previous provider, pt's son and palliative care provider discussion, pt has been on hospice care and waited for arrangement for pt to have hospice in pt's son home. petroleum refinery worker and pt's son together found a hospice provider [facility] accepted pt for hospice. I personal called pt's son Al for twice. I confirmed pt's son requested hospice care in his home for his mother. Today before pt was d/c to hospice. I called Al again, discussed with him the care plan, answer all his questions and concerns, confirmed he want to remove his mother's NG tube for hospice care. Al hope all lott in his mother hospital room to be brought back with pt to him. Al asked nurse call him. I give nurse Serena Melendez's phone to call him. Al satisfied all my answers and arrangements, no further questions. social economist fax pt's hospice meds to [facility] team. - ALLERGIES Allergies/Adverse Reactions: Allergies Allergy/AdvReac Type Severity Reaction Status Date / Time alendronate sodium Allergy Unknown Verified 01/15/20 12:14 [From Fosamax] codeine Allergy Unknown Verified 01/15/20 12:14 fentanyl Allergy Unknown Verified 01/15/20 12:14 ibandronate sodium Allergy Unknown Verified 01/15/20 12:14 risedronate sodium Allergy Unknown Verified 01/15/20 12:14 [From Actonel] Sulfa (Sulfonamide Allergy Unknown Verified 01/15/20 12:14 Antibiotics) - MEDICATIONS Home Medications: Ambulatory Orders Medication Instructions Recorded Confirmed Cholecalciferol [Vitamin D3] 10,000 unit PO DAILY 01/15/20 01/15/20 Cyanocobalamin [Vitamin B-12] 1,000 mcg IM MO 01/15/20 01/15/20 Escitalopram Oxalate 20 mg PO DAILY 01/15/20 01/15/20 Fluticasone [Flonase] 2 sprays MAURICE BID 01/15/20 01/15/20 Glutamine [Endari] 10 ml PO BID 01/15/20 01/15/20 Lansoprazole [Prevacid] 15 mg PO DAILY 01/15/20 01/15/20 Metoclopramide [Reglan] 10 mg PO AC 05/05/20 05/05/20 Ondansetron Odt [Zofran Odt] 4 mg TL Q4H PRN 01/15/20 01/15/20 Saccharomyces Boulardii [Florastor] 250 mg PO BID 01/15/20 01/15/20 Vitamin B Complex 1 each PO DAILY 01/15/20 01/15/20 Warfarin Sodium [Coumadin] 3 mg PO DAILY 01/15/20 01/15/20 LORazepam [Ativan] 0.5 mg PO Q6H PRN #15 tablet 01/25/20 Morphine Sulfate [Morphine Sulf 5 mg PO Q2H PRN #30 ml 01/25/20 Oral (Roxanol)] - PHYSICAL EXAM AT DISCHARGE General Appearance: positive: Lethargic Eyes Bilateral: positive: Normal inspection, No lid inflammation ENT: positive: ENT inspection nml. negative: Purulent nasal drainage Neck: positive: Nml inspection, Thyroid nml, Trachea midline. negative: Thyromegaly, Tracheal deviation Respiratory: positive: Chest non-tender, No respiratory distress. negative: Wheezes, Rales Cardiovascular: positive: No murmur, No gallop, Irregularly irregular. negative: Tachycardia, Bradycardia, Systolic murmur, Diastolic murmur Peripheral Pulses: positive: 2+ Abdomen: positive: Non-tender, Nml bowel sounds, No distention. negative: Tenderness, Guarding, Rebound Back: positive: Nml inspection Skin: positive: Color nml, No rash, Warm, Dry. negative: Cyanosis, Diaphoresis, Pallor Extremities: positive: Nml appearance Neurologic/Psychiatric: positive: Sensation nml. negative: Facial droop - LABS Result Diagrams: 01/20/20 05:55 01/20/20 05:55 - FOLLOW UP Follow Up: followup hospice care - TIME SPENT Time Spent in Discharge (Minutes): 30"
[2020-01-25 07:55] VITALS: BP 112/68
== END 2020-01-25 08:20 | disposition hospice, home (50) | DRG 682 ==
LOC: EDUNIT# → ED 11:48 → MS2 14:22
PROVIDERS: ADMIT Internal Medicine; ATTEND Nurse Practitioner Gerontology
PROC: 05H833Z Insertion of Infusion Device into Left Axillary Vein, Percutaneous Approach (ICD-10-PCS; principal; 2020-01-16)
DX: N17.9 Acute kidney failure, unspecified (principal); R41.82 Altered mental status, unspecified; E43 Unspecified severe protein-calorie malnutrition; N39.0 Urinary tract infection, site not specified; R63.4 Abnormal weight loss; Z20.828 Contact with and (suspected) exposure to other viral communicable diseases; E87.0 Hyperosmolality and hypernatremia; R40.2422 Glasgow coma scale score 9-12, at arrival to emergency department; F03.90 Unspecified dementia, unspecified severity, without behavioral disturbance, psychotic disturbance, mood disturbance, and anxiety; E87.6 Hypokalemia; D63.1 Anemia in chronic kidney disease; E86.0 Dehydration; B96.4 Proteus (mirabilis) (morganii) as the cause of diseases classified elsewhere; N18.3 Chronic kidney disease, stage 3 (moderate); R62.7 Adult failure to thrive; I25.10 Atherosclerotic heart disease of native coronary artery without angina pectoris; Z68.21 Body mass index [BMI] 21.0-21.9, adult; R79.1 Abnormal coagulation profile; R79.89 Other specified abnormal findings of blood chemistry; R13.10 Dysphagia, unspecified; F50.89 Other specified eating disorder; R32 Unspecified urinary incontinence; H54.7 Unspecified visual loss; Z66 Do not resuscitate; Z51.5 Encounter for palliative care; Z90.49 Acquired absence of other specified parts of digestive tract; Z91.19 Patient's noncompliance with other medical treatment and regimen; Z79.01 Long term (current) use of anticoagulants; Z86.711 Personal history of pulmonary embolism; Z95.1 Presence of aortocoronary bypass graft; Z86.73 Personal history of transient ischemic attack (TIA), and cerebral infarction without residual deficits
CPT/HCPCS: 36415; 70450; 71045; 80048; 80053; 81001; 82570; 82607; 82746; 83540; 83605; 83690; 83735; 83880; 84133; 84466; 84484; 85025; 85610; 87077; 87086; 87181; 93005; 96361; 96374; 96375; 99221; 99223; 99232; 99285; A6250; J1650; J7040; J7120; U0004; 81003; 81599